=== PATIENT | male | born 1985 | race Caucasian/White ===

== ENCOUNTER 2016-06-04 23:47 | Emergency (ER) | payer MEDICAID ==
[2016-06-05 00:07] VITALS: BP 168/86
[2016-06-05] MEDS ORDERED: Ondansetron 4 MG/2 ML SDV IVPUSH ONE (00:27)
[2016-06-05] MEDS ORDERED: Sodium Chloride 0.9% 1,000 ML IV SCH (00:30)
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
--- NOTE | 2016-06-06 09:01 | CR ---
Chest 2V HISTORY: cough COMPARISON: None FINDINGS: Lungs appear clear and normally aerated. Cardiomediastinal silhouette is within normal limits. No va scular redistribution or pleural fluid can be seen. Bony structures and soft tissues are unremarkabl e. IMPRESSION: No acute chest abnormality identified.
== END 2016-06-05 02:37 | disposition home or self-care (01) ==
LOC: JP.ED 23:47
DX: Z77.098 Contact with and (suspected) exposure to other hazardous, chiefly nonmedicinal, chemicals (principal); F31.9 Bipolar disorder, unspecified; F17.210 Nicotine dependence, cigarettes, uncomplicated; Z88.1 Allergy status to other antibiotic agents; Z79.899 Other long term (current) drug therapy; Z96.22 Myringotomy tube(s) status; Z98.890 Other specified postprocedural states
CPT/HCPCS: 36415; 71020; 80053; 80305; 81001; 84443; 84484; 85025; 93005; 96361; 96374; 99284; J2405; J7040

== ENCOUNTER 2016-10-14 17:24 | Inpatient (IN) | payer MEDICAID ==
[2016-10-14] MEDS ORDERED: Sodium Chloride 0.9% 1,000 ML IV ONE ×2 (17:45→19:53)
[2016-10-14] MEDS: Sodium Chloride 0.9% 10 ML Syringe FLUSH PRN ×3 (17:56→21:06)
--- NOTE | 2016-10-14 17:57 | EDM.PDOC ---
ED HPI GENERAL MEDICAL PROBLEM - General Chief Complaint: Respiratory Problem Stated Complaint: [facility] Time Seen by Provider: 10/14/16 17:45 Source of Information: Reports: Patient History Limitations: Reports: No Limitations - History of Present Illness INITIAL COMMENTS - FREE TEXT/NARRATIVE: Jose is a 31 year old male who presents to the ED today via EMS with c/o increasing sob x3 days. patient denies any fever or chills, he does report that he has felt diaphoretic at times. Patient does smoke 1 pack per day, he denies any recent drug use except for Suboxone. Patient does endorse a productive cough but he reports this is not new. Patient denies any vomiting or diarrhea. Patient denies any chest pain or history of blood clots. Onset: Gradual Duration: Day(s): (3) - Related Data Allergies Allergy/AdvReac Type Severity Reaction Status Date / Time amoxicillin Allergy Hives Verified 10/14/16 17:34 Home Meds: Home Meds Divalproex Sodium [Depakote] 1,500 mg PO DAILY 06/05/16 [History] Gabapentin [Neurontin] 600 mg PO TID 06/05/16 [History] Naproxen 500 mg PO ASDIRECTED 06/05/16 [History] QUEtiapine [SEROquel] 200 mg PO BEDTIME 06/05/16 [History] QUEtiapine [SEROquel] 300 mg PO BEDTIME 06/05/16 [History] buPROPion [Wellbutrin XL] 150 mg PO DAILY 06/05/16 [History] Buprenorphine HCl/Naloxone HCl [Suboxone 12 mg-3 mg Sl Film] 1 dose PO BID 10/14 [History] Past Medical History Cardiovascular History: Reports: Hypertension Gastrointestinal History: Reports: Hepatitis Genitourinary History: Reports: Other (See Below) Other Genitourinary History: States he had acute kidney faliure Musculoskeletal History: Reports: Fracture Other Musculoskeletal History: Jaw Neurological History: Reports: Seizure Other Neuro History: TBI Psychiatric History: Reports: ADHD, Addiction, Bipolar, Psych Hospitalization(s) , PTSD, Suicide Attempt Endocrine/Metabolic History: Reports: Other (See Below) Other Endocrine/Metabolic History: pre diabetes - Infectious Disease History Infectious Disease History: Reports: Hepatitis C - Past Surgical History HEENT Surgical History: Reports: Adenoidectomy, Myringotomy w Tube(s) Musculoskeletal Surgical History: Reports: Other (See Below) Other Musculoskeletal Surgeries/Procedures:: surgery for broken jaw Social & Family History - Tobacco Use Smoking Status *Q: Heavy Tobacco Smoker Years of Tobacco use: 20 Packs/Tins Daily: 1 - Caffeine Use Caffeine Use: Reports: Coffee, Energy Drinks, Soda - Recreational Drug Use Recreational Drug Use: Yes Recreational Drug Type: Reports: Heroin, Methamphetamine ED ROS GENERAL - Review of Systems Review Of Systems: ROS reveals no pertinent complaints other than HPI. ED EXAM, GENERAL - Physical Exam Exam: See Below Exam Limited By: No Limitations General Appearance: Alert, WD/WN, Anxious, Mild Distress Throat/Mouth: Normal Inspection, Normal Oropharynx Head: Atraumatic Neck: Normal Inspection, Supple, Non-Tender Respiratory/Chest: Lungs Clear, Normal Breath Sounds, Other (mildly tachypneic) . No: Accessory Muscle Use Cardiovascular: Normal Peripheral Pulses, No Murmur, Tachycardia GI/Abdominal: Normal Bowel Sounds, Soft, Non-Tender Extremities: Normal Inspection Neurological: Alert, Oriented, CN II-XII Intact Psychiatric: Anxious Skin Exam: Diaphoretic, Pallor Lymphatic: No Adenopathy Course - Vital Signs Last Recorded V/S: Last Vital Signs Temp 37 C 10/14/16 17:29 Pulse 101 H 10/14/16 20:03 Resp 26 H 10/14/16 17:29 BP 147/85 H 10/14/16 20:03 Pulse Ox 96 10/14/16 20:03 Jose is a 31-year-old otherwise healthy male who presents to the emergency department today with a 3 day history of worsening shortness of breath. Patient denies any fever, he does endorse a productive cough which is not new for him as he is a one pack per day smoker. Patient on arrival here is tachypnea, he is in mild distress secondary to hypoxia, saturation on room air is 85%. Patient responds nicely to 2 L of oxygen per cannula with sats in 94-95%.patient is mildly hypertensive and tachycardic on arrival, given his hypoxia and vital signs, or pulmonary embolism is certainly on the differential, pneumonia is also on the differential although less likely given his lack of fever. Peripheral IV was established and patient was given a liter of fluid here with IV Ativan for anxiety. Chest x-ray was obtained which was negative for any lobar pneumonia. CBC was obtained, white count is normal at 7.9, hemoglobin stable at 14.4, platelet count is 417. CMP returns with a glucose of 111 is otherwise within normal limits. Patient's C-reactive protein is elevated at 2.53 , d-dimer returned at 3080. CT PE was obtained and confirms multiple bilateral pulmonary artery filling defects involving segmental branches in the right upper , right middle, right lower, and left lower lobes. Main pulmonary artery is borderline dilated with evidence of RV strain. Patient was notified of CT results, given his hypoxia I am going to admit him to the hospital and start him on heparin with bridged to Coumadin. I spoke with Dr. Tomas who has accepted patient for admission and will be in to write admission orders. Patient and his girlfriend are agreeable to plan of care and patient will be admitted in stable condition. - Orders/Labs/Meds Orders: Active Orders 24 hr Category Date Time Status Peripheral IV Care [RC] . DIRECTED Care 10/14/16 17:44 Active Ang Chest [CT] Stat Exams 10/14/16 18:47 Taken Chest 2V [CR] Stat Exams 10/14/16 17:45 Taken Heparin Sodium/D5W [Heparin 25,000 Units in D5W 500 ML] Med 10/14/16 20:45 Active 25,000 units in 500 ml IV TITRATE Iopamidol [Isovue-370 (76%)] Med 10/14/16 19:45 Active 100 ml IV . DIRECTED Sodium Chloride 0.9% [Normal Saline] 1,000 ml Med 10/14/16 19:53 Active IV .BOLUS Sodium Chloride 0.9% [Saline Flush] Med 10/14/16 17:44 Active 10 ml FLUSH ASDIRECTED PRN Peripheral IV Insertion Adult [OM.PC] Routine Oth 10/14/16 17:44 Ordered Medication Orders Sodium Chloride (Normal Saline) 1,000 mls @ 999 mls/hr IV .BOLUS ONE Stop: 10/14/16 20:53 Last Admin: 10/14/16 20:00 Dose: 999 mls/hr Heparin Sodium/Dextrose (Heparin 25,000 Units In D5w 500 Ml) 25,000 units in 500 mls @ 26 mls/hr IV TITRATE ALDO; 1,300 UNITS/HR PRN Reason: Protocol Iopamidol (Isovue-370 (76%)) 100 ml IV . DIRECTED ALDO Last Admin: 10/14/16 19:51 Dose: 100 ml Sodium Chloride (Saline Flush) 10 ml FLUSH ASDIRECTED PRN PRN Reason: Keep Vein Open Last Admin: 10/14/16 19:51 Dose: 10 ml Admin: 10/14/16 17:56 Dose: 10 ml Labs: Laboratory Tests 10/14/16 10/14/16 10/14/16 Range/Units 17:44 17:45 17:45 WBC 7.9 (4.5-11.0) K/uL RBC 4.62 (4.30-5.90) M/uL Hgb 14.4 (12.0-15.0) g/dL Hct 41.3 (40.0-54.0) % MCV 89 (80-98) fL MCH 31 (27-31) pg MCHC 35 (32-36) % Plt Count 417 H (150-400) K/uL Neut % (Auto) 63 (36-66) % Lymph % (Auto) 22 L (24-44) % Mccormick % (Auto) 12 H (2-6) % Eos % (Auto) 2 (2-4) % Baso % (Auto) 1 (0-1) % D-Dimer, Quantitative (0.0-400.0) ng/mL Sodium 141 (140-148) mmol/L Potassium 4.4 (3.6-5.2) mmol/L Chloride 106 (100-108) mmol/L Carbon Dioxide 26 (21-32) mmol/L Anion Gap 9.2 (5.0-14.0) mmol/L BUN 14 D (7-18) mg/dL Creatinine 1.0 (0.8-1.3) mg/dL Est Cr Clr Drug Dosing 118.74 mL/min Estimated GFR (MDRD) > 60 (>60) Glucose 111 H (74-106) mg/dL Lactic Acid 1.5 (0.4-2.0) mmol/L Calcium 9.2 (8.5-10.1) mg/dL Total Bilirubin 0.2 (0.2-1.0) mg/dL AST 16 (15-37) U/L ALT 23 (12-78) U/L Alkaline Phosphatase 95 (46-116) U/L C-Reactive Protein (0.0-0.3) mg/dL Total Protein 8.1 (6.4-8.2) g/dL Albumin 3.6 (3.4-5.0) g/dL Globulin 4.5 H (2.3-3.5) g/dL Albumin/Globulin Ratio 0.8 L (1.2-2.2) Urine Color Urine Appearance Urine pH (4.5-8.0) Ur Specific [place] (1.008-1.030) Urine Protein (NEGATIVE) mg/dL Urine Glucose (UA) (NEGATIVE) mg/dL Urine Ketones (NEGATIVE) mg/dL Urine Occult Blood (NEGATIVE) Urine Nitrite (NEGAITVE) Urine Bilirubin (NEGATIVE) Urine Urobilinogen (NORMAL) mg/dL Ur Leukocyte Esterase (NEGATIVE) Urine RBC (0-5) Urine WBC (0-5) Ur Epithelial Cells Amorphous Sediment Urine Bacteria Urine Mucus Urine Opiates Screen (NEGATIVE) Ur Oxycodone Screen (NEGATIVE) Urine Methadone Screen (NEGATIVE) Ur Propoxyphene Screen (NEGATIVE) Ur Barbiturates Screen (NEGATIVE) Ur Tricyclics Screen (NEGATIVE) Ur Phencyclidine Scrn (NEGATIVE) Ur Amphetamine Screen (NEGATIVE) U Methamphetamines Scrn (NEGATIVE) Urine MDMA Screen (NEGATIVE) U Benzodiazepines Scrn (NEGATIVE) U Cocaine Metab Screen (NEGATIVE) U Marijuana (THC) Screen (NEGATIVE) 10/14/16 10/14/16 10/14/16 Range/Units 17:46 17:56 18:59 WBC (4.5-11.0) K/uL RBC (4.30-5.90) M/uL Hgb (12.0-15.0) g/dL Hct (40.0-54.0) % MCV (80-98) fL MCH (27-31) pg MCHC (32-36) % Plt Count (150-400) K/uL Neut % (Auto) (36-66) % Lymph % (Auto) (24-44) % Mccormick % (Auto) (2-6) % Eos % (Auto) (2-4) % Baso % (Auto) (0-1) % D-Dimer, Quantitative 3080 H (0.0-400.0) ng/mL Sodium (140-148) mmol/L Potassium (3.6-5.2) mmol/L Chloride (100-108) mmol/L Carbon Dioxide (21-32) mmol/L Anion Gap (5.0-14.0) mmol/L BUN (7-18) mg/dL Creatinine (0.8-1.3) mg/dL Est Cr Clr Drug Dosing mL/min Estimated GFR (MDRD) (>60) Glucose (74-106) mg/dL Lactic Acid (0.4-2.0) mmol/L Calcium (8.5-10.1) mg/dL Total Bilirubin (0.2-1.0) mg/dL AST (15-37) U/L ALT (12-78) U/L Alkaline Phosphatase (46-116) U/L C-Reactive Protein 2.53 H (0.0-0.3) mg/dL Total Protein (6.4-8.2) g/dL Albumin (3.4-5.0) g/dL Globulin (2.3-3.5) g/dL Albumin/Globulin Ratio (1.2-2.2) Urine Color Urine Appearance Urine pH (4.5-8.0) Ur Specific [place] (1.008-1.030) Urine Protein (NEGATIVE) mg/dL Urine Glucose (UA) (NEGATIVE) mg/dL Urine Ketones (NEGATIVE) mg/dL Urine Occult Blood (NEGATIVE) Urine Nitrite (NEGAITVE) Urine Bilirubin (NEGATIVE) Urine Urobilinogen (NORMAL) mg/dL Ur Leukocyte Esterase (NEGATIVE) Urine RBC (0-5) Urine WBC (0-5) Ur Epithelial Cells Amorphous Sediment Urine Bacteria Urine Mucus Urine Opiates Screen Negative (NEGATIVE) Ur Oxycodone Screen Negative (NEGATIVE) Urine Methadone Screen Negative (NEGATIVE) Ur Propoxyphene Screen Negative (NEGATIVE) Ur Barbiturates Screen Negative (NEGATIVE) Ur Tricyclics Screen Negative (NEGATIVE) Ur Phencyclidine Scrn Negative (NEGATIVE) Ur Amphetamine Screen Negative (NEGATIVE) U Methamphetamines Scrn Negative (NEGATIVE) Urine MDMA Screen Negative (NEGATIVE) U Benzodiazepines Scrn Negative (NEGATIVE) U Cocaine Metab Screen Negative (NEGATIVE) U Marijuana (THC) Screen Negative (NEGATIVE) 10/14/16 Range/Units 18:59 WBC (4.5-11.0) K/uL RBC (4.30-5.90) M/uL Hgb (12.0-15.0) g/dL Hct (40.0-54.0) % MCV (80-98) fL MCH (27-31) pg MCHC (32-36) % Plt Count (150-400) K/uL Neut % (Auto) (36-66) % Lymph % (Auto) (24-44) % Mccormick % (Auto) (2-6) % Eos % (Auto) (2-4) % Baso % (Auto) (0-1) % D-Dimer, Quantitative (0.0-400.0) ng/mL Sodium (140-148) mmol/L Potassium (3.6-5.2) mmol/L Chloride (100-108) mmol/L Carbon Dioxide (21-32) mmol/L Anion Gap (5.0-14.0) mmol/L BUN (7-18) mg/dL Creatinine (0.8-1.3) mg/dL Est Cr Clr Drug Dosing mL/min Estimated GFR (MDRD) (>60) Glucose (74-106) mg/dL Lactic Acid (0.4-2.0) mmol/L Calcium (8.5-10.1) mg/dL Total Bilirubin (0.2-1.0) mg/dL AST (15-37) U/L ALT (12-78) U/L Alkaline Phosphatase (46-116) U/L C-Reactive Protein (0.0-0.3) mg/dL Total Protein (6.4-8.2) g/dL Albumin (3.4-5.0) g/dL Globulin (2.3-3.5) g/dL Albumin/Globulin Ratio (1.2-2.2) Urine Color Yellow Urine Appearance Clear Urine pH 7.0 (4.5-8.0) Ur Specific [place] 1.010 (1.008-1.030) Urine Protein Negative (NEGATIVE) mg/dL Urine Glucose (UA) Normal (NEGATIVE) mg/dL Urine Ketones Negative (NEGATIVE) mg/dL Urine Occult Blood Negative (NEGATIVE) Urine Nitrite Negative (NEGAITVE) Urine Bilirubin Negative (NEGATIVE) Urine Urobilinogen Normal (NORMAL) mg/dL Ur Leukocyte Esterase Negative (NEGATIVE) Urine RBC 0-5 (0-5) Urine WBC 0-5 (0-5) Ur Epithelial Cells Rare Amorphous Sediment Few Urine Bacteria Not seen Urine Mucus Few Urine Opiates Screen (NEGATIVE) Ur Oxycodone Screen (NEGATIVE) Urine Methadone Screen (NEGATIVE) Ur Propoxyphene Screen (NEGATIVE) Ur Barbiturates Screen (NEGATIVE) Ur Tricyclics Screen (NEGATIVE) Ur Phencyclidine Scrn (NEGATIVE) Ur Amphetamine Screen (NEGATIVE) U Methamphetamines Scrn (NEGATIVE) Urine MDMA Screen (NEGATIVE) U Benzodiazepines Scrn (NEGATIVE) U Cocaine Metab Screen (NEGATIVE) U Marijuana (THC) Screen (NEGATIVE) Meds: Medications Generic Name Dose Route Start Last Admin Trade Name Freq PRN Reason Stop Dose Admin Sodium Chloride 1,000 mls @ 999 mls/hr 10/14/16 19:53 10/14/16 20:00 Normal Saline IV 10/14/16 20:53 999 mls/hr .BOLUS ONE Administration Heparin Sodium/Dextrose 25,000 units in 500 mls @ 26 mls/hr 10/14/16 20:45 Heparin 25,000 Units In D5w 500 Ml IV TITRATE ALDO Protocol 1,300 UNITS/HR Iopamidol 100 ml 10/14/16 19:45 10/14/16 19:51 Isovue-370 (76%) IV 100 ml . DIRECTED ALDO Administration Sodium Chloride 10 ml 10/14/16 17:44 10/14/16 19:51 Saline Flush FLUSH 10 ml ASDIRECTED PRN Administration Keep Vein Open Discontinued Medications Generic Name Dose Route Start Last Admin Trade Name Suzi PRN Reason Stop Dose Admin Heparin Sodium (Porcine) 5,000 units 10/14/16 20:46 Heparin Sodium IVPUSH 10/14/16 20:47 ONETIME ONE Sodium Chloride 1,000 mls @ 999 mls/hr 10/14/16 17:45 10/14/16 17:55 Normal Saline IV 10/14/16 18:45 999 mls/hr .BOLUS ONE Administration Sodium Chloride 100 mls @ 3 mls/sec 10/14/16 19:32 10/14/16 19:51 Normal Saline IV 10/14/16 19:33 3 mls/sec ONETIME ONE Administration Lorazepam 1 mg 10/14/16 18:06 10/14/16 18:41 Ativan IVPUSH 10/14/16 18:07 1 mg ONETIME ONE Administration Sodium Chloride 10 ml 10/14/16 19:32 Normal Saline FLUSH 10/14/16 19:33 ONETIME ONE Departure - Departure Time of Disposition: 21:30 Disposition: Admitted As Inpatient 64 Condition: Good Clinical Impression: Pulmonary emboli Qualifiers: Pulmonary embolism type: other Chronicity: acute Acute cor pulmonale presence: without acute cor pulmonale Qualified Code(s): I26.99 - Other pulmonary embolism without acute cor pulmonale - Discharge Information Forms: ED Department Discharge - My Orders Last 24 Hours: My Active Orders 10/14/16 17:44 Peripheral IV Care [RC] . DIRECTED Sodium Chloride 0.9% [Saline Flush] 10 ml FLUSH ASDIRECTED PRN Peripheral IV Insertion Adult [OM.PC] Routine 10/14/16 17:45 Chest 2V [CR] Stat 10/14/16 18:47 Ang Chest [CT] Stat 10/14/16 19:45 Iopamidol [Isovue-370 (76%)] 100 ml IV . DIRECTED 10/14/16 19:53 Sodium Chloride 0.9% [Normal Saline] 1,000 ml IV .BOLUS 10/14/16 20:45 Heparin Sodium/D5W [Heparin 25,000 Units in D5W 500 ML] 25,000 units in 500 ml IV TITRATE - Assessment/Plan Last 24 Hours: My Active Orders 10/14/16 17:44 Peripheral IV Care [RC] . DIRECTED Sodium Chloride 0.9% [Saline Flush] 10 ml FLUSH ASDIRECTED PRN Peripheral IV Insertion Adult [OM.PC] Routine 10/14/16 17:45 Chest 2V [CR] Stat 10/14/16 18:47 Ang Chest [CT] Stat 10/14/16 19:45 Iopamidol [Isovue-370 (76%)] 100 ml IV . DIRECTED 10/14/16 19:53 Sodium Chloride 0.9% [Normal Saline] 1,000 ml IV .BOLUS 10/14/16 20:45 Heparin Sodium/D5W [Heparin 25,000 Units in D5W 500 ML] 25,000 units in 500 ml IV TITRATE
[2016-10-14] MEDS ORDERED: LORazepam 2 MG/ML MDV IVPUSH ONE ×2 (18:06→21:12)
[2016-10-14] MEDS ORDERED: Sodium Chloride 0.9% 100 ML IV ONE (19:32)
[2016-10-14] MEDS ORDERED: Sodium Chloride 0.9% 10 ML SDV FLUSH ONE (19:32)
[2016-10-14] MEDS ORDERED: Iopamidol 755 Mg/ML 100 ML Bottle IV SCH (19:45)
[2016-10-14] MEDS ORDERED: Heparin Sodium/D5W 25,000 UNITS/500 ML BAG IV SCH (20:45)
[2016-10-14] MEDS ORDERED: Heparin Sodium 5,000 Units/ML Vial IVPUSH ONE (20:46)
[2016-10-14] MEDS: Sodium Chloride 0.9% 1,000 ML IV SCH (21:03)
[2016-10-14] MEDS ORDERED: Sodium Chloride 0.9% 1,000 ML IV SCH (21:30)
[2016-10-14] MEDS ORDERED: Warfarin 5 MG Tab PO ONE (21:40)
[2016-10-14] MEDS ORDERED: LORazepam 2 MG/ML MDV IVPUSH PRN ×2 (22:34→23:04)
[2016-10-14] MEDS ORDERED: QUEtiapine 100 MG Tab PO SCH ×2 (23:00→23:45)
[2016-10-14] MEDS: Nicotine 21 MG/24 Hr Patch TRDERM SCH (23:08)
[2016-10-14] MEDS: Mirtazapine 15 MG Tab PO SCH (23:16)
--- NOTE | 2016-10-15 00:57 | HP ---
CHIEF COMPLAINT: Shortness of breath. HISTORY OF PRESENT ILLNESS: A 31-year-old, who has had history of chronic back pain with psychological problems, previous chemical dependency with meth, but it has been a few months since he has used. For the last four to five days, he has had increasing shortness of breath, no chest pain. Has not had any pain or swelling in his legs. Apparently, about a week ago, he was tackled by police, was brought into the emergency room because of his shortness of breath, which had increased and was noted to have bilateral pulmonary embolism. He has never had a history of this in the past. I was asked to see the patient for further evaluation and treatment. Patient otherwise denies any other specific complaints. PAST MEDICAL HISTORY: Chronic back pain, chronic opioid therapy with doctor in [place]. He had a fractured jaw with titanium plate placed on the right side in the past, otherwise no other significant surgical medical problems. MEDICATIONS: Suboxone 12 mg/3 b.i.d., Depakote 1500 mg daily, gabapentin 600 mg t.i.d., naproxen 500 mg I am not sure how often he gets this, and Seroquel 200 mg and 300 mg at bedtime. Apparently, bupropion 150 mg daily. ALLERGIES: AMOXICILLIN. SOCIAL HISTORY: Smokes but I would like to try to quit, occasional alcohol use, had used meth last about three months ago. FAMILY HISTORY: I think maybe his mother had some type of blood clot, but he does not know for sure. Otherwise, no other clotting problems that run in his family that he knows of. REVIEW OF SYSTEMS: Denies headaches, vision changes, upper respiratory symptoms. No chest pain. Does have shortness of breath. No nausea, vomiting, diarrhea, constipation. No bloody or black stools. No urinary problems. No swelling in his legs. No skin problems reported. No neurologic complaints reported. OBJECTIVE: VITAL SIGNS: Pulse 111, blood pressure 135/95, O2 saturation apparently en route he was in the mid 80% range on room air, now is on 2 L and is 96%. GENERAL: The patient is alert and oriented x3, in no apparent distress. HEENT: Pharynx is clear. NECK: Supple. No obvious thyromegaly. Does have chronic pain of his neck and back. No deformity. LUNGS: Clear. HEART: Regular without murmurs. ABDOMEN: Soft, nontender, no mass or organomegaly palpated. SKIN: Has number of tattoos. EXTREMITIES: I do not see any pain or swelling of his arms or legs. Kenton's sign is negative. Calves not painful. No swelling. LABORATORY DATA: CT scan showed multiple bilateral pulmonary emboli. D-dimer was 3080. White count 7.9, hemoglobin 14.4, platelets 417,000. Sodium 141, potassium 4.1, chloride 106. Liver functions were normal. C-reactive protein was elevated at 2.53. Urinalysis was unremarkable. Tox screen was negative. ASSESSMENT: Shortness of breath, bilateral pulmonary emboli, stable on 2 L of O2 per nasal cannula. He has been already started on IV heparin, which will continue and start him on warfarin. We will turn over his care to the hospitalist in the morning. Other medical problems as listed above. Tony Tomas MD /[id number]
[2016-10-15] MEDS ORDERED: Heparin Sodium 5,000 Units/ML Vial IVPUSH ONE (03:23)
[2016-10-15] MEDS: Sodium Chloride 0.9% 1,000 ML IV SCH (04:42)
[2016-10-15] MEDS ORDERED: Naproxen 250 MG Tab PO PRN (07:30)
[2016-10-15] MEDS: Gabapentin 300 MG Cap PO SCH ×3 (08:39→21:19)
[2016-10-15] MEDS: Nicotine 21 MG/24 Hr Patch TRDERM SCH (08:39)
[2016-10-15] MEDS: Enoxaparin 120 MG/0.8 ML Syringe SUBCUT SCH ×2 (08:42→21:19)
[2016-10-15] MEDS ORDERED: buPROPion 150 MG Tab.ER PO SCH (09:00)
[2016-10-15] MEDS ORDERED: Warfarin 5 MG Tab PO ONE (09:00)
[2016-10-15] MEDS ORDERED: Divalproex Sodium Delayed-Release 250 MG Tab.CR PO SCH (09:00)
[2016-10-15] MEDS ORDERED: Divalproex Sodium 250 MG Tab.ER PO SCH (09:00)
--- NOTE | 2016-10-15 09:27 | PCM.PN ---
- General Info Date of Service: 10/15/16 Functional Status: Reports: Pain Controlled, Tolerating Diet, Urinating - Review of Systems General: Reports: No Symptoms Pulmonary: Reports: Shortness of Breath. Denies: Pleuritic Chest Pain, Cough, Sputum, Hemoptysis, Wheezing Cardiovascular: Reports: Dyspnea on Exertion. Denies: Chest Pain, Palpitations , Orthopnea, PND, Edema Gastrointestinal: Reports: No Symptoms Systems Review Comment:: This patient is a 31-year-old gentleman was admitted during the night with hypoxia secondary to bilateral pulmonary emboli. He has no previous history of blood clots, one week ago was tackled by police and did have some bruising and sore areas on his legs. He was admitted through the emergency department and started on IV heparin as well as his first dose of warfarin. Remains on supplemental oxygen but reports that his shortness of breath has been better. Vital signs have been stable and he has remained afebrile. - Patient Data Vitals - Most Recent: Last Vital Signs Temp 96.7 F 10/15/16 08:00 Pulse 60 10/15/16 08:00 Resp 20 10/15/16 08:00 BP 128/74 10/15/16 08:00 Pulse Ox 93 L 10/15/16 08:00 Weight - Most Recent: 255 lb I&O - Last 24 Hours: Intake & Output 10/14/16 10/15/16 10/15/16 22:59 06:59 14:59 Intake Total 1821 Output Total 700 Balance 1121 Lab Results Last 24 Hours: Laboratory Results - last 24 hr 10/14/16 10/14/16 10/15/16 Range/Units 21:40 22:02 02:50 PT 10.5 (9.5-12.0) sec INR 0.98 (0.80-1.20) APTT 26.9 L 32.7 (27.0-36.0) sec Med Orders - Current: Current Medications Bupropion HCl (Wellbutrin Xl) 150 mg PO BEDTIME ALDO Divalproex Sodium (Depakote Er) 1,500 mg PO BEDTIME [facility] Enoxaparin Sodium (Lovenox) 120 mg SUBCUT Q12H [facility] Last Admin: 10/15/16 08:42 Dose: 120 mg Gabapentin (Neurontin) 600 mg PO TID [facility] Last Admin: 10/15/16 08:39 Dose: 600 mg Lorazepam (Ativan) 0.5 mg IVPUSH Q4H PRN PRN Reason: Anxiety Mirtazapine (Remeron) 15 mg PO BEDTIME [facility] Last Admin: 10/14/16 23:16 Dose: 15 mg Naproxen (Naprosyn) 500 mg PO BID PRN PRN Reason: PAIN Nicotine (Habitrol) 21 mg TRDERM DAILY [facility]DO Last Admin: 10/15/16 08:39 Dose: 21 mg Non-Formulary Medication (Buprenorphine Hcl/Naloxone Hcl [Suboxone 12 Mg-3 Mg Sl Film]) 1 dose PO BID ALDO Pneumococcal Polyvalent Vaccine (Pneumovax 23) 0.5 ml SUBCUT .ONCE ONE Stop: 10/16/16 10:01 Quetiapine Fumarate 300 mg/ (Quetiapine Fumarate 200 mg) 500 mg PO BEDTIME ALDO Sodium Chloride (Saline Flush) 10 ml FLUSH ASDIRECTED PRN PRN Reason: Keep Vein Open Last Admin: 10/14/16 21:06 Dose: 10 ml Discontinued Medications Heparin Sodium (Porcine) (Heparin Sodium) 5,000 units IVPUSH ONETIME ONE Stop: 10/14/16 20:47 Last Admin: 10/14/16 21:03 Dose: 5,000 units Heparin Sodium (Porcine) (Heparin Sodium) 2,500 units IVPUSH ONETIME ONE Stop: 10/15/16 03:24 Last Admin: 10/15/16 03:38 Dose: 2,500 units Sodium Chloride (Normal Saline) 1,000 mls @ 999 mls/hr IV .BOLUS ONE Stop: 10/14/16 18:45 Last Admin: 10/14/16 17:55 Dose: 999 mls/hr Sodium Chloride (Normal Saline) 100 mls @ 3 mls/sec IV ONETIME ONE Stop: 10/14/16 19:33 Last Admin: 10/14/16 19:51 Dose: 3 mls/sec Sodium Chloride (Normal Saline) 1,000 mls @ 999 mls/hr IV .BOLUS ONE Stop: 10/14/16 20:53 Last Admin: 10/14/16 20:00 Dose: 999 mls/hr Heparin Sodium/Dextrose (Heparin 25,000 Units In D5w 500 Ml) 25,000 units in 500 mls @ 26 mls/hr IV TITRATE ALDO; 1,300 UNITS/HR PRN Reason: Protocol Last Titration: 10/15/16 03:27 Dose: 1,760 units/hr, 35.2 mls/hr Sodium Chloride (Normal Saline) 1,000 mls @ 125 mls/hr IV ASDIRECTED ALDO Last Admin: 10/15/16 04:42 Dose: 125 mls/hr Sodium Chloride (Normal Saline) 1,000 mls @ 125 mls/hr IV ASDIRECTED ALDO Iopamidol (Isovue-370 (76%)) 100 ml IV . DIRECTED ALDO Last Admin: 10/14/16 19:51 Dose: 100 ml Lorazepam (Ativan) 1 mg IVPUSH ONETIME ONE Stop: 10/14/16 18:07 Last Admin: 10/14/16 18:41 Dose: 1 mg Lorazepam (Ativan) 1 mg IVPUSH ONETIME ONE Stop: 10/14/16 21:13 Last Admin: 10/14/16 21:24 Dose: 1 mg Lorazepam (Ativan) 1 mg IVPUSH Q4H PRN PRN Reason: Anxiety Last Admin: 10/14/16 23:09 Dose: 1 mg Lorazepam (Ativan) 1 mg IVPUSH Q2H PRN PRN Reason: Anxiety Quetiapine Fumarate (Seroquel) 200 mg PO BEDTIME [facility]DO Quetiapine Fumarate (Seroquel) 300 mg PO BEDTIME ALDO Quetiapine Fumarate (Seroquel) 200 mg PO BEDTIME [facility]DO Last Admin: 10/14/16 23:50 Dose: 200 mg Quetiapine Fumarate (Seroquel) 300 mg PO BEDTIME [facility] Quetiapine Fumarate (Seroquel) 300 mg PO BEDTIME ALDO Last Admin: 10/14/16 23:51 Dose: 300 mg Sodium Chloride (Normal Saline) 10 ml FLUSH ONETIME ONE Stop: 10/14/16 19:33 Last Admin: 10/14/16 23:10 Dose: Not Given Warfarin Sodium (Coumadin) 5 mg PO ONETIME ONE Stop: 10/14/16 21:41 Last Admin: 10/14/16 22:55 Dose: 5 mg Warfarin Sodium (Coumadin) 5 mg PO ONETIME ONE Stop: 10/15/16 09:01 Last Admin: 10/15/16 08:42 Dose: 5 mg - Exam Quality Assessment: Supplemental Oxygen, DVT Prophylaxis General: Alert, Oriented, Cooperative, Mild Distress Lungs: Clear to Auscultation, Normal Respiratory Effort Cardiovascular: Regular Rate, Regular Rhythm, No Murmurs GI/Abdominal Exam: Normal Bowel Sounds, Soft, Non-Tender, No Distention Extremities: Normal Inspection, No Pedal Edema Skin: Warm, Dry, Intact - Problem List Review Problem List Initiated/Reviewed/Updated: Yes - My Orders Last 24 Hours: My Active Orders 10/15/16 09:00 Enoxaparin [Lovenox] 120 mg SUBCUT Q12H 10/15/16 09:18 Cardiac Monitoring [RC] .As Directed 10/15/16 09:22 LORazepam [Ativan] 0.5 mg IVPUSH Q4H PRN Convert IV to Saline Lock [OM.PC] Routine 10/16/16 05:11 INR,PT,PROTHROMBIN TIME [COAG] AM - Plan Plan:: ASSESSMENT AND PLAN BILATERAL PULMONARY EMBOLI-he denies any previous history of blood clots. Possible traumatic event occurring one week ago may have contributed to development of deep vein thrombosis. There is a family history of blood clots but is not sure of the specifics. Reports that his shortness of breath has improved since admission. -Saline lock IV -Discontinue IV heparin -Lovenox 120 mg subcutaneous every 12 hours -Warfarin 5 mg by mouth today -INR in a.m. -Evaluation for hypercoagulable state after he is off of warfarin MAINTENANCE ISSUES -DVT prophylaxis; current therapy with Lovenox should provide adequate DVT prophylaxis -GI prophylaxis; not indicated -Cabral catheter; not indicated -Nutrition; regular diet -Nicotine dependence; 21 mg nicotinic patch CODE STATUS-FULL CODE ADMISSION STATUS-patient will be admitted to inpatient status, expect at least a 2 night hospital stay for evaluation and management of problems as outlined above. At the time of this admission I do not reasonably expected evaluation and management of this problem will require more than a 96 hour hospital stay. DISPOSITION-anticipate discharge to home after the hospital stay. PRIMARY CARE PROVIDER-Gene Art
[2016-10-15] MEDS: LORazepam 2 MG/ML MDV IVPUSH PRN ×2 (17:16→23:03)
[2016-10-15] MEDS: Nicotine Polacrilex 2 MG Gum CHEW PRN (18:18)
[2016-10-15] MEDS ORDERED: QUEtiapine 100 MG Tab PO SCH ×2 (21:00)
[2016-10-15] MEDS: Divalproex Sodium 250 MG Tab.ER PO SCH (21:19)
[2016-10-15] MEDS: Mirtazapine 15 MG Tab PO SCH (21:20)
[2016-10-15] MEDS: QUETIAPINE PO SCH ×2 (21:21)
[2016-10-15] MEDS: buPROPion 150 MG Tab.ER PO SCH (21:21)
[2016-10-16] MEDS: Nicotine 21 MG/24 Hr Patch TRDERM SCH (08:01)
[2016-10-16] MEDS: Enoxaparin 120 MG/0.8 ML Syringe SUBCUT SCH ×2 (08:02→20:02)
[2016-10-16] MEDS: Nicotine Polacrilex 2 MG Gum CHEW PRN (08:07)
[2016-10-16] MEDS ORDERED: Warfarin 2.5 MG Tab PO ONE (09:00)
--- NOTE | 2016-10-16 09:14 | PCM.PN ---
- General Info Date of Service: 10/16/16 - Review of Systems General: Denies: Fever, Chills Pulmonary: Reports: Shortness of Breath. Denies: Pleuritic Chest Pain, Cough, Sputum, Hemoptysis, Wheezing Cardiovascular: Reports: Dyspnea on Exertion. Denies: Chest Pain, Palpitations , Orthopnea, PND, Edema, Lightheadedness Gastrointestinal: Reports: No Symptoms Systems Review Comment:: This patient has continued to experience mild hypoxia and has required ongoing use of supplemental oxygen. Other than borderline saturations he's otherwise been hemodynamically stable as well as afebrile. This morning is very groggy, nursing staff has found to Xanax pills in the room. He denies having taking any medications other than what her currently prescribed. Currently is using nicotinic patch as well as nicotinic gum for management of his nicotinic withdrawal. Continues to ask nursing staff to be able to go outside to smoke. I explained to him with the current pulmonary emboli that he really needs to stop smoking because of respiratory compromise. - Patient Data Vitals - Most Recent: Last Vital Signs Temp 97.9 F 10/16/16 07:32 Pulse 97 10/16/16 07:32 Resp 20 10/16/16 07:32 BP 120/64 10/16/16 07:32 Pulse Ox 90 L 10/16/16 07:32 Weight - Most Recent: 255 lb I&O - Last 24 Hours: Intake & Output 10/15/16 10/16/16 10/16/16 22:59 06:59 14:59 Intake Total 1360 Balance 1360 Lab Results Last 24 Hours: Laboratory Results - last 24 hr 10/16/16 Range/Units 05:37 PT 10.8 (9.5-12.0) sec INR 1.01 (0.80-1.20) Med Orders - Current: Current Medications Bupropion HCl (Wellbutrin Xl) 150 mg PO BEDTIME [facility] Last Admin: 10/15/16 21:21 Dose: 150 mg Divalproex Sodium (Depakote Er) 1,500 mg PO BEDTIME [facility] Last Admin: 10/15/16 21:19 Dose: 1,500 mg Enoxaparin Sodium (Lovenox) 120 mg SUBCUT Q12H [facility] Last Admin: 10/16/16 08:02 Dose: 120 mg Gabapentin (Neurontin) 600 mg PO TID [facility] Last Admin: 10/15/16 21:19 Dose: 600 mg Lorazepam (Ativan) 0.5 mg IVPUSH Q4H PRN PRN Reason: Anxiety Last Admin: 10/15/16 23:03 Dose: 0.5 mg Mirtazapine (Remeron) 15 mg PO BEDTIME [facility] Last Admin: 10/15/16 21:20 Dose: 15 mg Naproxen (Naprosyn) 500 mg PO BID PRN PRN Reason: PAIN Nicotine (Habitrol) 21 mg TRDERM DAILY [facility] Last Admin: 10/16/16 08:01 Dose: 21 mg Nicotine Polacrilex (Nicorelief) 2 mg CHEW Q1H PRN PRN Reason: smoking substitute Last Admin: 10/16/16 08:07 Dose: 2 mg Non-Formulary Medication (Buprenorphine Hcl/Naloxone Hcl [Suboxone 12 Mg-3 Mg Sl Film]) 1 dose PO BID [facility] Pneumococcal Polyvalent Vaccine (Pneumovax 23) 0.5 ml SUBCUT .ONCE ONE Stop: 10/16/16 10:01 Quetiapine Fumarate 300 mg/ (Quetiapine Fumarate 200 mg) 500 mg PO BEDTIME [facility] Last Admin: 10/15/16 21:21 Dose: 500 mg Sodium Chloride (Saline Flush) 10 ml FLUSH ASDIRECTED PRN PRN Reason: Keep Vein Open Last Admin: 10/14/16 21:06 Dose: 10 ml Discontinued Medications Heparin Sodium (Porcine) (Heparin Sodium) 5,000 units IVPUSH ONETIME ONE Stop: 10/14/16 20:47 Last Admin: 10/14/16 21:03 Dose: 5,000 units Heparin Sodium (Porcine) (Heparin Sodium) 2,500 units IVPUSH ONETIME ONE Stop: 10/15/16 03:24 Last Admin: 10/15/16 03:38 Dose: 2,500 units Sodium Chloride (Normal Saline) 1,000 mls @ 999 mls/hr IV .BOLUS ONE Stop: 10/14/16 18:45 Last Admin: 10/14/16 17:55 Dose: 999 mls/hr Sodium Chloride (Normal Saline) 100 mls @ 3 mls/sec IV ONETIME ONE Stop: 10/14/16 19:33 Last Admin: 10/14/16 19:51 Dose: 3 mls/sec Sodium Chloride (Normal Saline) 1,000 mls @ 999 mls/hr IV .BOLUS ONE Stop: 10/14/16 20:53 Last Admin: 10/14/16 20:00 Dose: 999 mls/hr Heparin Sodium/Dextrose (Heparin 25,000 Units In D5w 500 Ml) 25,000 units in 500 mls @ 26 mls/hr IV TITRATE ALDO; 1,300 UNITS/HR PRN Reason: Protocol Last Titration: 10/15/16 03:27 Dose: 1,760 units/hr, 35.2 mls/hr Sodium Chloride (Normal Saline) 1,000 mls @ 125 mls/hr IV ASDIRECTED ALDO Last Admin: 10/15/16 04:42 Dose: 125 mls/hr Sodium Chloride (Normal Saline) 1,000 mls @ 125 mls/hr IV ASDIRECTED ALDO Iopamidol (Isovue-370 (76%)) 100 ml IV . DIRECTED ALDO Last Admin: 10/14/16 19:51 Dose: 100 ml Lorazepam (Ativan) 1 mg IVPUSH ONETIME ONE Stop: 10/14/16 18:07 Last Admin: 10/14/16 18:41 Dose: 1 mg Lorazepam (Ativan) 1 mg IVPUSH ONETIME ONE Stop: 10/14/16 21:13 Last Admin: 10/14/16 21:24 Dose: 1 mg Lorazepam (Ativan) 1 mg IVPUSH Q4H PRN PRN Reason: Anxiety Last Admin: 10/14/16 23:09 Dose: 1 mg Lorazepam (Ativan) 1 mg IVPUSH Q2H PRN PRN Reason: Anxiety Quetiapine Fumarate (Seroquel) 200 mg PO BEDTIME [facility]DO Quetiapine Fumarate (Seroquel) 300 mg PO BEDTIME ALDO Quetiapine Fumarate (Seroquel) 200 mg PO BEDTIME [facility]DO Last Admin: 10/14/16 23:50 Dose: 200 mg Quetiapine Fumarate (Seroquel) 300 mg PO BEDTIME ALDO Quetiapine Fumarate (Seroquel) 300 mg PO BEDTIME [facility]DO Last Admin: 10/14/16 23:51 Dose: 300 mg Sodium Chloride (Normal Saline) 10 ml FLUSH ONETIME ONE Stop: 10/14/16 19:33 Last Admin: 10/14/16 23:10 Dose: Not Given Warfarin Sodium (Coumadin) 5 mg PO ONETIME ONE Stop: 10/14/16 21:41 Last Admin: 10/14/16 22:55 Dose: 5 mg Warfarin Sodium (Coumadin) 5 mg PO ONETIME ONE Stop: 10/15/16 09:01 Last Admin: 10/15/16 08:42 Dose: 5 mg Warfarin Sodium (Coumadin) 7.5 mg PO ONETIME ONE Stop: 10/16/16 09:01 - Exam Quality Assessment: Supplemental Oxygen, DVT Prophylaxis General: Alert, Oriented, Sedated Lungs: Clear to Auscultation, Normal Respiratory Effort Cardiovascular: Regular Rate, Regular Rhythm, No Murmurs GI/Abdominal Exam: Normal Bowel Sounds, Soft, Non-Tender, No Distention Extremities: Normal Inspection, No Pedal Edema Skin: Warm, Dry, Intact - Problem List Review Problem List Initiated/Reviewed/Updated: Yes - My Orders Last 24 Hours: My Active Orders 10/15/16 09:00 Enoxaparin [Lovenox] 120 mg SUBCUT Q12H 10/15/16 09:18 Cardiac Monitoring [RC] .As Directed 10/15/16 09:22 LORazepam [Ativan] 0.5 mg IVPUSH Q4H PRN Convert IV to Saline Lock [OM.PC] Routine 10/15/16 17:29 Nicotine Polacrilex [Nicorelief] 2 mg CHEW Q1H PRN 10/15/16 18:12 Communication Order [RC] ASDIRECTED 10/17/16 05:11 INR,PT,PROTHROMBIN TIME [COAG] AM - Plan Plan:: ASSESSMENT AND PLAN BILATERAL PULMONARY EMBOLI-he denies any previous history of blood clots. Possible traumatic event occurring one week ago may have contributed to development of deep vein thrombosis. There is a family history of blood clots but is not sure of the specifics. Continues to experience hypoxia on room air. INR remains almost normal despite 2 previous 5 mg doses of warfarin -Supplemental oxygen as needed -Continuous pulse oximetry -Saline lock IV -Lovenox 120 mg subcutaneous every 12 hours -Warfarin 7.5 mg by mouth today -INR in a.m. -Evaluation for hypercoagulable state after he is off of warfarin MAINTENANCE ISSUES -DVT prophylaxis; current therapy with Lovenox should provide adequate DVT prophylaxis -GI prophylaxis; not indicated -Cabral catheter; not indicated -Nutrition; regular diet -Nicotine dependence; 21 mg nicotine patch, 2 mg nicotine gum CODE STATUS-FULL CODE ADMISSION STATUS-patient will be admitted to inpatient status, expect at least a 2 night hospital stay for evaluation and management of problems as outlined above. At the time of this admission I do not reasonably expected evaluation and management of this problem will require more than a 96 hour hospital stay. DISPOSITION-anticipate discharge to home after the hospital stay. PRIMARY CARE PROVIDER-Gene Art
[2016-10-16] MEDS ORDERED: Pneumococcal Polyvalent-23 Vaccine 0.5 ML SDV SUBCUT ONE (10:00)
[2016-10-16] MEDS: Gabapentin 300 MG Cap PO SCH ×3 (10:19→20:02)
[2016-10-16] MEDS ORDERED: LORazepam 0.5 MG Tab PO PRN (19:32)
[2016-10-16] MEDS: Divalproex Sodium 250 MG Tab.ER PO SCH (20:02)
[2016-10-16] MEDS: Mirtazapine 15 MG Tab PO SCH (20:02)
[2016-10-16] MEDS: QUETIAPINE PO SCH ×2 (20:03)
[2016-10-16] MEDS: buPROPion 150 MG Tab.ER PO SCH (20:03)
--- NOTE | 2016-10-17 08:15 | CR ---
Chest 2V INDICATION: cough COMPARISON: 06/05/2016 FINDINGS: Two views. Heart size normal. Lungs are clear. No infiltrate or pleural effusion. No si gns of pulmonary edema. IMPRESSION: Negative chest.
[2016-10-17] MEDS: Nicotine 21 MG/24 Hr Patch TRDERM SCH (09:28)
[2016-10-17] MEDS: Gabapentin 300 MG Cap PO SCH ×3 (09:28→20:57)
[2016-10-17] MEDS: Enoxaparin 120 MG/0.8 ML Syringe SUBCUT SCH ×2 (09:28→20:55)
--- NOTE | 2016-10-17 10:13 | PCM.PN ---
- General Info Date of Service: 10/17/16 Functional Status: Reports: Pain Controlled, Tolerating Diet - Review of Systems Pulmonary: Reports: Shortness of Breath Cardiovascular: Denies: Chest Pain Systems Review Comment:: no acute events overnight. He has been noted to have intermittent episodes of somnolence. Patient denies using any sort of extra medication on top of what is prescribed. He is short of breath with activity and requires supplemental oxygen intermittently and especially with activity. Not having any fevers. INR still subtherapeutic. No bleeding difficulties. - Patient Data Vitals - Most Recent: Last Vital Signs Temp 35.1 C L 10/17/16 07:27 Pulse 80 10/17/16 07:27 Resp 24 H 10/17/16 07:27 BP 130/84 10/17/16 07:27 Pulse Ox 92 L 10/17/16 07:34 Weight - Most Recent: 115.666 kg I&O - Last 24 Hours: Intake & Output 10/16/16 10/17/16 10/17/16 22:59 06:59 14:59 Intake Total 1426 Balance 1426 Lab Results Last 24 Hours: Laboratory Results - last 24 hr 10/17/16 Range/Units 05:30 PT 12.6 H (9.5-12.0) sec INR 1.17 (0.80-1.20) Med Orders - Current: Current Medications Bupropion HCl (Wellbutrin Xl) 150 mg PO BEDTIME [facility] Last Admin: 10/16/16 20:03 Dose: 150 mg Divalproex Sodium (Depakote Er) 1,500 mg PO BEDTIME [facility] Last Admin: 10/16/16 20:02 Dose: 1,500 mg Enoxaparin Sodium (Lovenox) 120 mg SUBCUT Q12H [facility] Last Admin: 10/17/16 09:28 Dose: 120 mg Gabapentin (Neurontin) 600 mg PO TID [facility] Last Admin: 10/17/16 09:28 Dose: 600 mg Lorazepam (Ativan) 0.5 mg PO Q4H PRN PRN Reason: Anxiety Last Admin: 10/16/16 20:03 Dose: 0.5 mg Mirtazapine (Remeron) 15 mg PO BEDTIME [facility] Last Admin: 10/16/16 20:02 Dose: 15 mg Naproxen (Naprosyn) 500 mg PO BID PRN PRN Reason: PAIN Last Admin: 10/16/16 20:03 Dose: 500 mg Nicotine (Habitrol) 21 mg TRDERM DAILY [facility] Last Admin: 10/17/16 09:28 Dose: 21 mg Nicotine Polacrilex (Nicorelief) 2 mg CHEW Q1H PRN PRN Reason: smoking substitute Last Admin: 10/16/16 08:07 Dose: 2 mg Non-Formulary Medication (Buprenorphine Hcl/Naloxone Hcl [Suboxone 12 Mg-3 Mg Sl Film]) 1 dose PO BID [facility] Pneumococcal Polyvalent Vaccine (Pneumovax 23) 0.5 ml SUBCUT .ONCE ONE Stop: 10/17/16 14:01 Quetiapine Fumarate 300 mg/ (Quetiapine Fumarate 200 mg) 500 mg PO BEDTIME [facility] Last Admin: 10/16/16 20:03 Dose: 500 mg Sodium Chloride (Saline Flush) 10 ml FLUSH ASDIRECTED PRN PRN Reason: Keep Vein Open Last Admin: 10/14/16 21:06 Dose: 10 ml Discontinued Medications Heparin Sodium (Porcine) (Heparin Sodium) 5,000 units IVPUSH ONETIME ONE Stop: 10/14/16 20:47 Last Admin: 10/14/16 21:03 Dose: 5,000 units Heparin Sodium (Porcine) (Heparin Sodium) 2,500 units IVPUSH ONETIME ONE Stop: 10/15/16 03:24 Last Admin: 10/15/16 03:38 Dose: 2,500 units Sodium Chloride (Normal Saline) 1,000 mls @ 999 mls/hr IV .BOLUS ONE Stop: 10/14/16 18:45 Last Admin: 10/14/16 17:55 Dose: 999 mls/hr Sodium Chloride (Normal Saline) 100 mls @ 3 mls/sec IV ONETIME ONE Stop: 10/14/16 19:33 Last Admin: 10/14/16 19:51 Dose: 3 mls/sec Sodium Chloride (Normal Saline) 1,000 mls @ 999 mls/hr IV .BOLUS ONE Stop: 10/14/16 20:53 Last Admin: 10/14/16 20:00 Dose: 999 mls/hr Heparin Sodium/Dextrose (Heparin 25,000 Units In D5w 500 Ml) 25,000 units in 500 mls @ 26 mls/hr IV TITRATE ALDO; 1,300 UNITS/HR PRN Reason: Protocol Last Titration: 10/15/16 03:27 Dose: 1,760 units/hr, 35.2 mls/hr Sodium Chloride (Normal Saline) 1,000 mls @ 125 mls/hr IV ASDIRECTED ALDO Last Admin: 10/15/16 04:42 Dose: 125 mls/hr Sodium Chloride (Normal Saline) 1,000 mls @ 125 mls/hr IV ASDIRECTED ALDO Iopamidol (Isovue-370 (76%)) 100 ml IV . DIRECTED ALDO Last Admin: 10/14/16 19:51 Dose: 100 ml Lorazepam (Ativan) 1 mg IVPUSH ONETIME ONE Stop: 10/14/16 18:07 Last Admin: 10/14/16 18:41 Dose: 1 mg Lorazepam (Ativan) 1 mg IVPUSH ONETIME ONE Stop: 10/14/16 21:13 Last Admin: 10/14/16 21:24 Dose: 1 mg Lorazepam (Ativan) 1 mg IVPUSH Q4H PRN PRN Reason: Anxiety Last Admin: 10/14/16 23:09 Dose: 1 mg Lorazepam (Ativan) 1 mg IVPUSH Q2H PRN PRN Reason: Anxiety Lorazepam (Ativan) 0.5 mg IVPUSH Q4H PRN PRN Reason: Anxiety Last Admin: 10/15/16 23:03 Dose: 0.5 mg Quetiapine Fumarate (Seroquel) 200 mg PO BEDTIME ALDO Quetiapine Fumarate (Seroquel) 300 mg PO BEDTIME ALDO Quetiapine Fumarate (Seroquel) 200 mg PO BEDTIME [facility]DO Last Admin: 10/14/16 23:50 Dose: 200 mg Quetiapine Fumarate (Seroquel) 300 mg PO BEDTIME ALDO Quetiapine Fumarate (Seroquel) 300 mg PO BEDTIME ALDO Last Admin: 10/14/16 23:51 Dose: 300 mg Sodium Chloride (Normal Saline) 10 ml FLUSH ONETIME ONE Stop: 10/14/16 19:33 Last Admin: 10/14/16 23:10 Dose: Not Given Warfarin Sodium (Coumadin) 5 mg PO ONETIME ONE Stop: 10/14/16 21:41 Last Admin: 10/14/16 22:55 Dose: 5 mg Warfarin Sodium (Coumadin) 5 mg PO ONETIME ONE Stop: 10/15/16 09:01 Last Admin: 10/15/16 08:42 Dose: 5 mg Warfarin Sodium (Coumadin) 7.5 mg PO ONETIME ONE Stop: 10/16/16 09:01 Last Admin: 10/16/16 10:19 Dose: 7.5 mg - Exam Quality Assessment: Supplemental Oxygen General: Alert, Oriented, Cooperative, No Acute Distress HEENT: Other (stye right eye ) Neck: Supple Lungs: Normal Respiratory Effort GI/Abdominal Exam: Soft, No Distention Extremities: No Pedal Edema Skin: Warm, Dry Psy/Mental Status: Alert, Normal Affect - Problem List Review Problem List Initiated/Reviewed/Updated: Yes - My Orders Last 24 Hours: My Active Orders 10/17/16 13:00 Warfarin [Coumadin] 7.5 mg PO DAILY@1300 10/18/16 05:00 INR,PT,PROTHROMBIN TIME [COAG] Timed - Plan Plan:: ASSESSMENT AND PLAN BILATERAL PULMONARY EMBOLI - no history of blood clots. Possible traumatic event occurring one week ago may have contributed to development of deep vein thrombosis. possible family history of blood clots. Continues to require supplemental oxygen. INR remains subtherapeutic. -Supplemental oxygen as needed -Continuous pulse oximetry -Saline lock IV -enoxaparin 120 mg subcutaneous every 12 hours -Warfarin 7.5 mg by mouth daily -INR daily -Evaluation for hypercoagulable state after he is off of warfarin Stye, right eye - 4 times a day warm packing Bipolar disorder - stable at this time. -Continue home medications Tobacco dependence - Some interest in quitting at this time. Currently using nicotine replacement therapy. Opiate dependence - on Suboxone MAINTENANCE ISSUES -DVT prophylaxis; current therapy with Lovenox should provide adequate DVT prophylaxis -GI prophylaxis; not indicated -Cabral catheter; not indicated -Nutrition; regular diet -Nicotine dependence; 21 mg nicotine patch, 2 mg nicotine gum DISPOSITION - anticipate discharge to home after the hospital stay. Roel Prieto M.D.
[2016-10-17] MEDS: SUBOXONE PO SCH ×2 (12:11→21:01)
[2016-10-17] MEDS ORDERED: Pneumococcal Polyvalent-23 Vaccine 0.5 ML SDV SUBCUT ONE (14:00)
[2016-10-17] MEDS: Warfarin 2.5 MG Tab PO SCH (15:17)
[2016-10-17] MEDS: Divalproex Sodium 250 MG Tab.ER PO SCH (20:54)
[2016-10-17] MEDS: Mirtazapine 15 MG Tab PO SCH (20:57)
[2016-10-17] MEDS: QUETIAPINE PO SCH ×2 (20:58)
[2016-10-17] MEDS: buPROPion 150 MG Tab.ER PO SCH (20:58)
[2016-10-17] MEDS: Nicotine Polacrilex 2 MG Gum CHEW PRN (21:06)
[2016-10-17] MEDS ORDERED: Ketorolac 0.5% Ophth Soln 3 ML Bottle EYERT PRN (23:08)
--- NOTE | 2016-10-18 00:59 | PCM.SN ---
- Free Text/Narrative Note: date 10/17/2016 time 22:45 pm; call from [facility]; Mr. Lucio complaints of right eye pain, requesting eye drops a; stye right eye p; advise to continue with warm packs. can trial dose of Ketoralac eye drops every 6 hours prn pain.
[2016-10-18] MEDS: Tetracaine HCl/PF 0.5% 4 ML Bottle EYERT PRN ×3 (03:01→17:39)
[2016-10-18] MEDS: Nicotine 21 MG/24 Hr Patch TRDERM SCH (09:36)
[2016-10-18] MEDS: Gabapentin 300 MG Cap PO SCH ×4 (09:37→20:28)
[2016-10-18] MEDS: Enoxaparin 120 MG/0.8 ML Syringe SUBCUT SCH ×2 (09:38→20:26)
--- NOTE | 2016-10-18 10:41 | PCM.PN ---
- General Info Date of Service: 10/18/16 Functional Status: Reports: Pain Controlled, Tolerating Diet, Ambulating - Review of Systems Pulmonary: Reports: Shortness of Breath Systems Review Comment:: No acute events overnight. Intermittently require supplemental oxygen. No complaints of chest pain. Still short of breath with activity. Swelling and redness of his right eye not dramatically better today. INR slowly increasing. - Patient Data Vitals - Most Recent: Last Vital Signs Temp 36.0 C 10/18/16 09:00 Pulse 84 10/18/16 09:00 Resp 16 10/18/16 09:00 BP 149/83 H 10/18/16 09:00 Pulse Ox 96 10/18/16 09:00 Weight - Most Recent: 115.666 kg Lab Results Last 24 Hours: Laboratory Results - last 24 hr 10/18/16 Range/Units 05:00 PT 14.7 H (9.5-12.0) sec INR 1.36 H (0.80-1.20) Oscar Results Last 24 Hours: Microbiology 10/17/16 18:54 Gram Stain - Final Sputum - Expectorated Med Orders - Current: Current Medications Bupropion HCl (Wellbutrin Xl) 150 mg PO BEDTIME [facility] Last Admin: 10/17/16 20:58 Dose: 150 mg Divalproex Sodium (Depakote Er) 1,500 mg PO BEDTIME [facility] Last Admin: 10/17/16 20:54 Dose: 1,500 mg Enoxaparin Sodium (Lovenox) 120 mg SUBCUT Q12H [facility] Last Admin: 10/18/16 09:38 Dose: 120 mg Gabapentin (Neurontin) 600 mg PO TID [facility] Last Admin: 10/18/16 09:37 Dose: 600 mg Ketorolac Tromethamine (Acular 0.5% Ophth Soln) 0 ml EYERT Q6H PRN PRN Reason: Pain Lorazepam (Ativan) 0.5 mg PO Q4H PRN PRN Reason: Anxiety Last Admin: 10/16/16 20:03 Dose: 0.5 mg Mirtazapine (Remeron) 15 mg PO BEDTIME [facility] Last Admin: 10/17/16 20:57 Dose: 15 mg Naproxen (Naprosyn) 500 mg PO BID PRN PRN Reason: PAIN Last Admin: 10/16/16 20:03 Dose: 500 mg Nicotine (Habitrol) 21 mg TRDERM DAILY [facility] Last Admin: 10/18/16 09:36 Dose: 21 mg Nicotine Polacrilex (Nicorelief) 2 mg CHEW Q1H PRN PRN Reason: smoking substitute Last Admin: 10/17/16 21:06 Dose: 2 mg Suboxone 12 Mg-3 Mg ((Ptom)) 0 dose PO BID [facility] Last Admin: 10/17/16 21:01 Dose: 12 dose Quetiapine Fumarate 300 mg/ (Quetiapine Fumarate 200 mg) 500 mg PO BEDTIME [facility] Last Admin: 10/17/16 20:58 Dose: 500 mg Sodium Chloride (Saline Flush) 10 ml FLUSH ASDIRECTED PRN PRN Reason: Keep Vein Open Last Admin: 10/14/16 21:06 Dose: 10 ml Tetracaine HCl (Tetracaine 0.5% Steri-Unit Jennifer) 0 ml EYERT QID PRN PRN Reason: eye pain Stop: 10/20/16 02:55 Last Admin: 10/18/16 10:15 Dose: 2 drop Warfarin Sodium (Coumadin) 7.5 mg PO DAILY@1300 [facility] Last Admin: 10/17/16 15:17 Dose: 7.5 mg Discontinued Medications Heparin Sodium (Porcine) (Heparin Sodium) 5,000 units IVPUSH ONETIME ONE Stop: 10/14/16 20:47 Last Admin: 10/14/16 21:03 Dose: 5,000 units Heparin Sodium (Porcine) (Heparin Sodium) 2,500 units IVPUSH ONETIME ONE Stop: 10/15/16 03:24 Last Admin: 10/15/16 03:38 Dose: 2,500 units Sodium Chloride (Normal Saline) 1,000 mls @ 999 mls/hr IV .BOLUS ONE Stop: 10/14/16 18:45 Last Admin: 10/14/16 17:55 Dose: 999 mls/hr Sodium Chloride (Normal Saline) 100 mls @ 3 mls/sec IV ONETIME ONE Stop: 10/14/16 19:33 Last Admin: 10/14/16 19:51 Dose: 3 mls/sec Sodium Chloride (Normal Saline) 1,000 mls @ 999 mls/hr IV .BOLUS ONE Stop: 10/14/16 20:53 Last Admin: 10/14/16 20:00 Dose: 999 mls/hr Heparin Sodium/Dextrose (Heparin 25,000 Units In D5w 500 Ml) 25,000 units in 500 mls @ 26 mls/hr IV TITRATE ALDO; 1,300 UNITS/HR PRN Reason: Protocol Last Titration: 10/15/16 03:27 Dose: 1,760 units/hr, 35.2 mls/hr Sodium Chloride (Normal Saline) 1,000 mls @ 125 mls/hr IV ASDIRECTED ALDO Last Admin: 10/15/16 04:42 Dose: 125 mls/hr Sodium Chloride (Normal Saline) 1,000 mls @ 125 mls/hr IV ASDIRECTED ALDO Iopamidol (Isovue-370 (76%)) 100 ml IV . DIRECTED ALDO Last Admin: 10/14/16 19:51 Dose: 100 ml Lorazepam (Ativan) 1 mg IVPUSH ONETIME ONE Stop: 10/14/16 18:07 Last Admin: 10/14/16 18:41 Dose: 1 mg Lorazepam (Ativan) 1 mg IVPUSH ONETIME ONE Stop: 10/14/16 21:13 Last Admin: 10/14/16 21:24 Dose: 1 mg Lorazepam (Ativan) 1 mg IVPUSH Q4H PRN PRN Reason: Anxiety Last Admin: 10/14/16 23:09 Dose: 1 mg Lorazepam (Ativan) 1 mg IVPUSH Q2H PRN PRN Reason: Anxiety Lorazepam (Ativan) 0.5 mg IVPUSH Q4H PRN PRN Reason: Anxiety Last Admin: 10/15/16 23:03 Dose: 0.5 mg Pneumococcal Polyvalent Vaccine (Pneumovax 23) 0.5 ml SUBCUT .ONCE ONE Stop: 10/17/16 14:01 Last Admin: 10/17/16 20:51 Dose: 0.5 ml Quetiapine Fumarate (Seroquel) 200 mg PO BEDTIME ALDO Quetiapine Fumarate (Seroquel) 300 mg PO BEDTIME ALDO Quetiapine Fumarate (Seroquel) 200 mg PO BEDTIME ALDO Last Admin: 10/14/16 23:50 Dose: 200 mg Quetiapine Fumarate (Seroquel) 300 mg PO BEDTIME ALDO Quetiapine Fumarate (Seroquel) 300 mg PO BEDTIME ALDO Last Admin: 10/14/16 23:51 Dose: 300 mg Sodium Chloride (Normal Saline) 10 ml FLUSH ONETIME ONE Stop: 10/14/16 19:33 Last Admin: 10/14/16 23:10 Dose: Not Given Warfarin Sodium (Coumadin) 5 mg PO ONETIME ONE Stop: 10/14/16 21:41 Last Admin: 10/14/16 22:55 Dose: 5 mg Warfarin Sodium (Coumadin) 5 mg PO ONETIME ONE Stop: 10/15/16 09:01 Last Admin: 10/15/16 08:42 Dose: 5 mg Warfarin Sodium (Coumadin) 7.5 mg PO ONETIME ONE Stop: 10/16/16 09:01 Last Admin: 10/16/16 10:19 Dose: 7.5 mg - Exam Quality Assessment: No: Supplemental Oxygen General: Alert, Oriented, Cooperative, No Acute Distress Neck: Supple Lungs: Normal Respiratory Effort GI/Abdominal Exam: Soft, No Distention Extremities: No Pedal Edema Skin: Warm, Dry Psy/Mental Status: Alert, Normal Affect - Problem List Review Problem List Initiated/Reviewed/Updated: Yes - My Orders Last 24 Hours: My Active Orders 10/17/16 13:00 Warfarin [Coumadin] 7.5 mg PO DAILY@1300 10/17/16 18:54 CULTURE RESPIRATORY + SMEAR [RM] Routine 10/19/16 05:00 CBC W/O DIFF,HEMOGRAM [HEME] Timed (1) INR,PT,PROTHROMBIN TIME [COAG] Timed - Plan Plan:: ASSESSMENT AND PLAN BILATERAL PULMONARY EMBOLI - no history of blood clots. Possible family history of blood clots. Continues to require supplemental oxygen intermittently. INR remains subtherapeutic. -Supplemental oxygen as needed -Continuous pulse oximetry -Saline lock IV -enoxaparin 120 mg subcutaneous every 12 hours -Warfarin 7.5 mg by mouth daily -INR daily -Evaluation for hypercoagulable state after he is off of warfarin Stye, right eye - 4 times a day warm packing Bipolar disorder - stable at this time. -Continue home medications Tobacco dependence - Some interest in quitting at this time. Currently using nicotine replacement therapy. Opiate dependence - on Suboxone MAINTENANCE ISSUES -DVT prophylaxis; enoxaparin -GI prophylaxis; not indicated -Cabral catheter; not indicated -Nutrition; regular diet -Nicotine dependence; 21 mg nicotine patch, 2 mg nicotine gum DISPOSITION - anticipate discharge to home after the hospital stay. Roel Prieot M.D.
[2016-10-18] MEDS: Warfarin 2.5 MG Tab PO SCH (13:17)
[2016-10-18] MEDS: SUBOXONE PO SCH ×2 (13:18→17:30)
[2016-10-18] MEDS: Divalproex Sodium 250 MG Tab.ER PO SCH (20:25)
[2016-10-18] MEDS: QUETIAPINE PO SCH ×2 (20:29)
[2016-10-18] MEDS: buPROPion 150 MG Tab.ER PO SCH (20:31)
[2016-10-18] MEDS: Mirtazapine 15 MG Tab PO SCH (20:31)
[2016-10-19] MEDS: Tetracaine HCl/PF 0.5% 4 ML Bottle EYERT PRN (07:24)
[2016-10-19] MEDS ORDERED: Enoxaparin 120 MG/0.8 ML Syringe SUBCUT SCH (09:00)
[2016-10-19 09:14] VITALS: BP 120/73
[2016-10-19] MEDS: Nicotine 21 MG/24 Hr Patch TRDERM SCH (09:17)
[2016-10-19] MEDS: Gabapentin 300 MG Cap PO SCH (09:18)
--- NOTE | 2016-10-19 10:22 | PCM.DCSUM1 ---
Discharge Summary - Hospital Course Brief History: 31-year-old male with history of tobacco dependence and opiate dependence who presented with shortness of breath and was admitted for management of acute bilateral pulmonary emboli. - Discharge Data Discharge Date: 10/19/16 Discharge Disposition: Home, Self-Care 01 Condition: Fair - Discharge Diagnosis/Problem(s) (1) Pulmonary emboli SNOMED Code(s): 13141885, 52592494 ICD Code: I26.99 - OTHER PULMONARY EMBOLISM WITHOUT ACUTE COR PULMONALE Status: Acute Qualifiers: Pulmonary embolism type: other Chronicity: acute Acute cor pulmonale presence: without acute cor pulmonale Qualified Code(s): I26.99 - Other pulmonary embolism without acute cor pulmonale (2) Tobacco dependence SNOMED Code(s): 61597100 ICD Code: F17.200 - NICOTINE DEPENDENCE, UNSPECIFIED, UNCOMPLICATED Status : Chronic (3) Stye SNOMED Code(s): 5219295 ICD Code: H00.019 - HORDEOLUM EXTERNUM UNSPECIFIED EYE, UNSPECIFIED EYELID Status: Acute Qualifiers: Laterality: right Eyelid: upper Qualified Code(s): H00.011 - Hordeolum externum right upper eyelid - Patient Summary/Data Hospital Course: Jose presented to the emergency room with several days of shortness of breath. Workup in the emergency room revealed an elevated d-dimer and this prompted a CT scan which did reveal multiple bilateral pulmonary emboli. He was admitted to the hospital and started on therapy with enoxaparin and warfarin. We continued these medications for several days until his INR was close to therapeutic. There was some concern about his reliability and elected to do most of the management in the hospital to ensure that he reached a therapeutic level with his warfarin prior to discharge. His INR did slowly rise with warfarin therapy and is nearly therapeutic on the day of discharge. He did receive a 24-hour dose of Lovenox. The morning of discharge. I suspect that with today's dose his INR will be 2 or greater tomorrow and then we will change to maintenance dose of 5 mg daily. We did provide some teaching about warfarin as well as dietary instructions with warfarin. He may very well have an inherited clotting disorder. We elected not to send the hypercoagulable panel during the hospital stay and will defer this to outpatient management and possibly even after he has completed his warfarin therapy. He did not have obvious preceding event to lead to DVT and/or PE. His hospital stay was complicated by several episodes of somnolence. There was suspicion for extra medication possibly brought in from the outside though no one ever witnessed this definitively. The last few days have been a less eventful. He'll be discharged home with Coumadin clinic follow-up next week and primary care follow -up next week. Also encountered during the hospital stay was a hordeolum on his right eye. We treated this with warm compresses with some improvement. Once the end of the hospital stay he developed more of a purulent drainage and I elected to provide a prescription for Polytrim eyedrops at the time of discharge. Hopefully these along with the warm compresses will treat the infection adequately. He is interested in quitting smoking. We discussed potential treatment options. He is are on Wellbutrin. He was interested in Chantix but I'm concerned that with his mental health issues that this may not be a safe medication for him. We discussed nicotine patches but he was not very interested in these. I encouraged him to set a quit date and try to decrease his cigarette intake between now and then. He will be using the nicotine gum to try and curb his cravings. - Patient Instructions Diet: Regular Diet as Tolerated Activity: As Tolerated Driving: May Drive Today Showering/Bathing: May Shower Notify Provider of: Fever, Increased Pain Other/Special Instructions: 1. You were in the hospital for management of acute bilateral pulmonary emboli (blood clots in your lungs). I recommend 6 months of therapy with warfarin (AKA coumadin). You should start by taking 5 mg of warfarin once daily at a consistent time. Your first dose will be due tomorrow. He will need follow-up in the Coumadin clinic to help monitor your levels. 2. Referral to the Coumadin clinic at [facility] in [place]. INR goal is 2 -3 and I recommend at least 6 months of therapy. 3. You have a stye on your right eye. I recommend that you place a hot washcloth over your eye for 15-20 minutes 4 times a day. I have also prescribed Polytrim eyedrops. You should place 4 drops in your right eye 4 times daily for 5 days. 4. Please seek medical attention if you develop acute shortness of breath, chest pain or have bleeding that you cannot control with pressure over the area. - Discharge Plan Prescriptions/Med Rec: Nicotine Polacrilex [Nicorelief] 2 mg CHEW Q1H PRN #2 box PRN Reason: nicotine dependence Polymyxin B Sulf/Trimethoprim [Polytrim Eye Drops] 4 drop EYERT QID #1 bottle Warfarin [Coumadin] 5 mg PO DAILY #30 tablet Home Medications: Home Meds Gabapentin [Neurontin] 600 mg PO TID 06/05/16 [History] Naproxen 500 mg PO BID PRN 06/05/16 [History] QUEtiapine [SEROquel] 200 mg PO BEDTIME 06/05/16 [History] QUEtiapine [SEROquel] 300 mg PO BEDTIME 06/05/16 [History] buPROPion [Wellbutrin XL] 150 mg PO DAILY 06/05/16 [History] Buprenorphine HCl/Naloxone HCl [Suboxone 12 mg-3 mg Sl Film] 1 dose PO BID 10/14 [History] Divalproex Sodium [Divalproex Sodium ER] 1,500 mg PO DAILY 10/15/16 [History] Mirtazapine [Remeron] 15 mg PO BEDTIME 10/15/16 [History] Nicotine Polacrilex [Nicorelief] 2 mg CHEW Q1H PRN #2 box 10/19/16 [Rx] Polymyxin B Sulf/Trimethoprim [Polytrim Eye Drops] 4 drop EYERT QID #1 bottle [Rx] Warfarin [Coumadin] 5 mg PO DAILY #30 tablet 10/19/16 [Rx] Patient Handouts: Smoking Cessation, Tips for Success, [id number], Vitamin K Foods and Warfarin, Warfarin Coagulopathy, Pulmonary Embolism Referrals: Gene Art PA-C [Physician Mathematical Statistician] - (f/u in 1 week - f/u hospital stay for pulmonary emboli) - Discharge Summary/Plan Comment DC Time >30 min.: No (25) - Patient Data Vitals - Most Recent: Last Vital Signs Temp 36.0 C 10/19/16 09:10 Pulse 100 10/19/16 09:10 Resp 18 10/19/16 09:10 BP 120/73 10/19/16 09:10 Pulse Ox 93 L 10/19/16 09:10 Weight - Most Recent: 115.666 kg I&O - Last 24 hours: Intake & Output 10/18/16 10/19/16 10/19/16 22:59 06:59 14:59 Intake Total 600 240 Balance 600 240 Lab Results - Last 24 hrs: Laboratory Results - last 24 hr 10/19/16 10/19/16 Range/Units 05:50 05:50 WBC 7.4 (4.5-11.0) K/uL RBC 4.51 (4.30-5.90) M/uL Hgb 14.0 (12.0-15.0) g/dL Hct 41.2 (40.0-54.0) % MCV 91 (80-98) fL MCH 31 (27-31) pg MCHC 34 (32-36) % Plt Count 462 H (150-400) K/uL PT 20.4 H (9.5-12.0) sec INR 1.86 H (0.80-1.20) OSVALDO Results - Last 24 hrs: Microbiology 10/17/16 18:54 Gram Stain - Final Sputum - Expectorated Respiratory Culture - Preliminary NORMAL RESPIRATORY LULU 1 DAY Med Orders - Current: Current Medications Bupropion HCl (Wellbutrin Xl) 150 mg PO BEDTIME [facility] Last Admin: 10/18/16 20:31 Dose: 150 mg Divalproex Sodium (Depakote Er) 1,500 mg PO BEDTIME [facility]DO Last Admin: 10/18/16 20:25 Dose: 1,500 mg Enoxaparin Sodium 120 mg/ (Enoxaparin Sodium 60 mg) 180 mg SUBCUT DAILY [facility] Last Admin: 10/19/16 09:18 Dose: 180 mg Gabapentin (Neurontin) 600 mg PO TID ALDO Last Admin: 10/19/16 09:18 Dose: 600 mg Ketorolac Tromethamine (Acular 0.5% Ophth Soln) 0 ml EYERT Q6H PRN PRN Reason: Pain Lorazepam (Ativan) 0.5 mg PO Q4H PRN PRN Reason: Anxiety Last Admin: 10/16/16 20:03 Dose: 0.5 mg Mirtazapine (Remeron) 15 mg PO BEDTIME [facility]DO Last Admin: 10/18/16 20:31 Dose: 15 mg Naproxen (Naprosyn) 500 mg PO BID PRN PRN Reason: PAIN Last Admin: 10/16/16 20:03 Dose: 500 mg Nicotine (Habitrol) 21 mg TRDERM DAILY [facility] Last Admin: 10/19/16 09:17 Dose: 21 mg Nicotine Polacrilex (Nicorelief) 2 mg CHEW Q1H PRN PRN Reason: smoking substitute Last Admin: 10/17/16 21:06 Dose: 2 mg Suboxone 12 Mg-3 Mg ((Ptom)) 0 dose PO BID [facility] Last Admin: 10/18/16 17:30 Dose: 1 dose Quetiapine Fumarate 300 mg/ (Quetiapine Fumarate 200 mg) 500 mg PO BEDTIME [facility] Last Admin: 10/18/16 20:29 Dose: 500 mg Sodium Chloride (Saline Flush) 10 ml FLUSH ASDIRECTED PRN PRN Reason: Keep Vein Open Last Admin: 10/14/16 21:06 Dose: 10 ml Tetracaine HCl (Tetracaine 0.5% Steri-Unit Jennifer) 0 ml EYERT QID PRN PRN Reason: eye pain Stop: 10/20/16 02:55 Last Admin: 10/19/16 07:24 Dose: 2 drop Warfarin Sodium (Coumadin) 7.5 mg PO DAILY@1300 [facility] Last Admin: 10/18/16 13:17 Dose: 7.5 mg Discontinued Medications Enoxaparin Sodium (Lovenox) 120 mg SUBCUT Q12H [facility] Last Admin: 10/18/16 20:26 Dose: 120 mg Heparin Sodium (Porcine) (Heparin Sodium) 5,000 units IVPUSH ONETIME ONE Stop: 10/14/16 20:47 Last Admin: 10/14/16 21:03 Dose: 5,000 units Heparin Sodium (Porcine) (Heparin Sodium) 2,500 units IVPUSH ONETIME ONE Stop: 10/15/16 03:24 Last Admin: 10/15/16 03:38 Dose: 2,500 units Sodium Chloride (Normal Saline) 1,000 mls @ 999 mls/hr IV .BOLUS ONE Stop: 10/14/16 18:45 Last Admin: 10/14/16 17:55 Dose: 999 mls/hr Sodium Chloride (Normal Saline) 100 mls @ 3 mls/sec IV ONETIME ONE Stop: 10/14/16 19:33 Last Admin: 10/14/16 19:51 Dose: 3 mls/sec Sodium Chloride (Normal Saline) 1,000 mls @ 999 mls/hr IV .BOLUS ONE Stop: 10/14/16 20:53 Last Admin: 10/14/16 20:00 Dose: 999 mls/hr Heparin Sodium/Dextrose (Heparin 25,000 Units In D5w 500 Ml) 25,000 units in 500 mls @ 26 mls/hr IV TITRATE ALDO; 1,300 UNITS/HR PRN Reason: Protocol Last Titration: 10/15/16 03:27 Dose: 1,760 units/hr, 35.2 mls/hr Sodium Chloride (Normal Saline) 1,000 mls @ 125 mls/hr IV ASDIRECTED ALDO Last Admin: 10/15/16 04:42 Dose: 125 mls/hr Sodium Chloride (Normal Saline) 1,000 mls @ 125 mls/hr IV ASDIRECTED ALDO Iopamidol (Isovue-370 (76%)) 100 ml IV . DIRECTED ALDO Last Admin: 10/14/16 19:51 Dose: 100 ml Lorazepam (Ativan) 1 mg IVPUSH ONETIME ONE Stop: 10/14/16 18:07 Last Admin: 10/14/16 18:41 Dose: 1 mg Lorazepam (Ativan) 1 mg IVPUSH ONETIME ONE Stop: 10/14/16 21:13 Last Admin: 10/14/16 21:24 Dose: 1 mg Lorazepam (Ativan) 1 mg IVPUSH Q4H PRN PRN Reason: Anxiety Last Admin: 10/14/16 23:09 Dose: 1 mg Lorazepam (Ativan) 1 mg IVPUSH Q2H PRN PRN Reason: Anxiety Lorazepam (Ativan) 0.5 mg IVPUSH Q4H PRN PRN Reason: Anxiety Last Admin: 10/15/16 23:03 Dose: 0.5 mg Pneumococcal Polyvalent Vaccine (Pneumovax 23) 0.5 ml SUBCUT .ONCE ONE Stop: 10/17/16 14:01 Last Admin: 10/17/16 20:51 Dose: 0.5 ml Quetiapine Fumarate (Seroquel) 200 mg PO BEDTIME ALDO Quetiapine Fumarate (Seroquel) 300 mg PO BEDTIME ALDO Quetiapine Fumarate (Seroquel) 200 mg PO BEDTIME ALDO Last Admin: 10/14/16 23:50 Dose: 200 mg Quetiapine Fumarate (Seroquel) 300 mg PO BEDTIME ALDO Quetiapine Fumarate (Seroquel) 300 mg PO BEDTIME ALDO Last Admin: 10/14/16 23:51 Dose: 300 mg Sodium Chloride (Normal Saline) 10 ml FLUSH ONETIME ONE Stop: 10/14/16 19:33 Last Admin: 10/14/16 23:10 Dose: Not Given Warfarin Sodium (Coumadin) 5 mg PO ONETIME ONE Stop: 10/14/16 21:41 Last Admin: 10/14/16 22:55 Dose: 5 mg Warfarin Sodium (Coumadin) 5 mg PO ONETIME ONE Stop: 10/15/16 09:01 Last Admin: 10/15/16 08:42 Dose: 5 mg Warfarin Sodium (Coumadin) 7.5 mg PO ONETIME ONE Stop: 10/16/16 09:01 Last Admin: 10/16/16 10:19 Dose: 7.5 mg *Q Meaningful Use (DIS) - VTE *Q VTE Criteria *Q: - Stroke *Q Stroke Criteria *Q: - AMI *Q AMI Criteria *Q:
[2016-10-19] MEDS: SUBOXONE PO SCH (10:40)
[2016-10-19] MEDS: Warfarin 2.5 MG Tab PO SCH (10:41)
== END 2016-10-19 11:00 | disposition home or self-care (01) | DRG 176 ==
LOC: JP.ED 17:24 → JP.ICU 21:31 → JP.MS 10-15 12:15
PROVIDERS: ADMIT Family Medicine; ATTEND Internal Medicine
DX: I26.99 Other pulmonary embolism without acute cor pulmonale (principal); F11.20 Opioid dependence, uncomplicated; R09.02 Hypoxemia; F17.210 Nicotine dependence, cigarettes, uncomplicated; H00.013 Hordeolum externum right eye, unspecified eyelid; G40.909 Epilepsy, unspecified, not intractable, without status epilepticus; Z87.820 Personal history of traumatic brain injury; Z91.5 Personal history of self-harm; F31.9 Bipolar disorder, unspecified; F43.10 Post-traumatic stress disorder, unspecified; G89.29 Other chronic pain; M54.9 Dorsalgia, unspecified; Z23 Encounter for immunization; Z79.01 Long term (current) use of anticoagulants; Z88.1 Allergy status to other antibiotic agents; R40.0 Somnolence
CPT/HCPCS: 36415; 71020; 71020-26; 71275; 80053; 80305; 81001; 83605; 85025; 85027; 85379; 85610; 85730; 86140; 87070; 87205; 90732; 94762; 96374; 96375; 99285-25; A9270-GY; J1644; J1650; J2060; J7030; J7040; J7050; Q9967

== ENCOUNTER 2017-05-15 22:21 | Emergency (ER) | payer MEDICAID ==
[2017-05-15 22:33] VITALS: BP 136/80
--- NOTE | 2017-05-15 22:49 | EDM.PDOCBH ---
ED HPI GENERAL MEDICAL PROBLEM - General Chief Complaint: Behavioral/Psych Stated Complaint: EVAL Time Seen by Provider: 05/15/17 22:42 Source of Information: Reports: Patient, Family, RN Notes Reviewed History Limitations: Reports: No Limitations - History of Present Illness INITIAL COMMENTS - FREE TEXT/NARRATIVE: 32-year-old gentleman presents to the emergency department today with complaints of suicidal ideation, he admits to using methamphetamine he admits to cutting himself he does have a wound on his left dorsal aspect of the wrist that is over 48 hours old. His plan was to either hang himself for keep cutting until the blood out - Related Data Allergies Allergy/AdvReac Type Severity Reaction Status Date / Time amoxicillin Allergy Hives Verified 05/15/17 23:04 Home Meds: Home Meds *Depakote PO BEDTIME 05/15/17 [History] *Gabapentin PO BEDTIME 05/15/17 [History] *Omeprazole PO BEDTIME 05/15/17 [History] *Prazosin PO BEDTIME 05/15/17 [History] *Propranolol PO BEDTIME 05/15/17 [History] *Suboxone PO BID 05/15/17 [History] *Warfarin PO BEDTIME 05/15/17 [History] *Wellbutrin PO BEDTIME 05/15/17 [History] Past Medical History Cardiovascular History: Reports: Hypertension Gastrointestinal History: Reports: Hepatitis Genitourinary History: Reports: Other (See Below) Other Genitourinary History: States he had acute kidney faliure Musculoskeletal History: Reports: Fracture Other Musculoskeletal History: Jaw Neurological History: Reports: Seizure Other Neuro History: TBI Psychiatric History: Reports: ADHD, Addiction, Bipolar, Psych Hospitalization(s) , PTSD, Suicide Attempt Endocrine/Metabolic History: Reports: Other (See Below) Other Endocrine/Metabolic History: pre diabetes - Infectious Disease History Infectious Disease History: Reports: Hepatitis C - Past Surgical History HEENT Surgical History: Reports: Adenoidectomy, Myringotomy w Tube(s) Musculoskeletal Surgical History: Reports: Other (See Below) Other Musculoskeletal Surgeries/Procedures:: surgery for broken jaw Social & Family History - Family History Family Medical History: Noncontributory - Tobacco Use Smoking Status *Q: Current Every Day Smoker Years of Tobacco use: 20 Packs/Tins Daily: 1 - Caffeine Use Caffeine Use: Reports: Coffee, Energy Drinks, Soda - Recreational Drug Use Recreational Drug Use: Yes Drug Use in Last 12 Months: Yes Recreational Drug Type: Reports: Dilaudid, Heroin, Methamphetamine, Vicodin ED ROS GENERAL - Review of Systems Review Of Systems: See Below Constitutional: Reports: No Symptoms Respiratory: Reports: No Symptoms Cardiovascular: Reports: No Symptoms GI/Abdominal: Reports: No Symptoms : Reports: No Symptoms Skin: Reports: Wound Psychiatric: Reports: Agitation, Suicidal Ideation ED EXAM, BEHAVIORAL HEALTH - Physical Exam Exam: See Below Exam Limited By: No Limitations General Appearance: Alert, No Apparent Distress Eye Exam: Bilateral Eye: Normal Inspection Respiratory/Chest: No Respiratory Distress, Lungs Clear, Normal Breath Sounds, No Accessory Muscle Use, Chest Non-Tender Cardiovascular: Normal Peripheral Pulses, Regular Rate, Rhythm, No Murmur GI/Abdominal: Soft, Non-Tender Psychiatric: Alert, Agitated, Poor Eye Contact, Suicidal Plan, Suicidal Thoughts. No: Uncooperative, Judaism Delusions, Tangential Thoughts, Auditory Hallucinations, Visual Hallucinations, Grandiose Thoughts, Paranoid Thoughts, Threatening Behavior Skin Exam: Wound/incision (Dorsal aspect of the wrist over 48 hours old starting to heal by second intention with granulation) COURSE, BEHAVIORAL HEALTH COMP - Course Vital Signs: Last Vital Signs Temp 95.2 F L 05/15/17 22:32 Pulse 92 05/15/17 22:32 Resp 16 05/15/17 22:32 BP 136/80 05/15/17 22:32 Pulse Ox 94 L 05/15/17 22:32 Orders, Labs, Meds: Active Orders 24 hr Category Date Time Status Vaccines to be Administered [RC] PER UNIT ROUTINE Care 05/15/17 23:03 Active Laboratory Tests 05/15/17 05/15/17 05/15/17 Range/Units 22:48 22:48 23:04 WBC 7.3 (4.5-11.0) K/uL RBC 4.49 (4.30-5.90) M/uL Hgb 13.8 (12.0-15.0) g/dL Hct 40.7 (40.0-54.0) % MCV 91 (80-98) fL MCH 31 (27-31) pg MCHC 34 (32-36) % Plt Count 408 H (150-400) K/uL Neut % (Auto) 50 (36-66) % Lymph % (Auto) 34 (24-44) % [place] % (Auto) 11 H (2-6) % Eos % (Auto) 4 (2-4) % Baso % (Auto) 0 (0-1) % Sodium (140-148) mmol/L Potassium (3.6-5.2) mmol/L Chloride (100-108) mmol/L Carbon Dioxide (21-32) mmol/L Anion Gap (5.0-14.0) mmol/L BUN (7-18) mg/dL Creatinine (0.8-1.3) mg/dL Est Cr Clr Drug Dosing mL/min Estimated GFR (MDRD) (>60) Glucose (74-106) mg/dL Calcium (8.5-10.1) mg/dL Total Bilirubin (0.2-1.0) mg/dL AST (15-37) U/L ALT (12-78) U/L Alkaline Phosphatase (46-116) U/L Total Protein (6.4-8.2) g/dL Albumin (3.4-5.0) g/dL Globulin (2.3-3.5) g/dL Albumin/Globulin Ratio (1.2-2.2) TSH, Ultra Sensitive (0.358-3.740) uIU/mL Urine Color [place] Urine Appearance Clear Urine pH 5.0 (4.5-8.0) Ur Specific [place] 1.020 (1.008-1.030) Urine Protein 30 H (NEGATIVE) mg/dL Urine Glucose (UA) Normal (NEGATIVE) mg/dL Urine Ketones 15 H (NEGATIVE) mg/dL Urine Occult Blood Negative (NEGATIVE) Urine Nitrite Negative (NEGAITVE) Urine Bilirubin Small (NEGATIVE) Urine Urobilinogen 4 (NORMAL) mg/dL Ur Leukocyte Esterase Small (NEGATIVE) Urine RBC Not seen (0-5) Urine WBC 0-5 (0-5) Ur Epithelial Cells Not seen Amorphous Sediment Few Urine Bacteria Not seen Urine Mucus Not seen Salicylates (2.0-20.0) mg/dL Urine Opiates Screen Negative (NEGATIVE) Ur Oxycodone Screen Negative (NEGATIVE) Urine Methadone Screen Negative (NEGATIVE) Ur Propoxyphene Screen Negative (NEGATIVE) Acetaminophen (10.0-30.0) ug/mL Ur Barbiturates Screen Negative (NEGATIVE) Ur Tricyclics Screen Positive H (NEGATIVE) Ur Phencyclidine Scrn Negative (NEGATIVE) Ur Amphetamine Screen Positive H (NEGATIVE) U Methamphetamines Scrn Positive H (NEGATIVE) Urine MDMA Screen Positive H (NEGATIVE) U Benzodiazepines Scrn Positive H (NEGATIVE) U Cocaine Metab Screen Negative (NEGATIVE) U Marijuana (THC) Screen Positive H (NEGATIVE) Ethyl Alcohol mg/dL 05/15/17 05/15/17 05/15/17 Range/Units 23:04 23:04 23:04 WBC (4.5-11.0) K/uL RBC (4.30-5.90) M/uL Hgb (12.0-15.0) g/dL Hct (40.0-54.0) % MCV (80-98) fL MCH (27-31) pg MCHC (32-36) % Plt Count (150-400) K/uL Neut % (Auto) (36-66) % Lymph % (Auto) (24-44) % [place] % (Auto) (2-6) % Eos % (Auto) (2-4) % Baso % (Auto) (0-1) % Sodium 138 L (140-148) mmol/L Potassium 4.2 (3.6-5.2) mmol/L Chloride 103 (100-108) mmol/L Carbon Dioxide 28 (21-32) mmol/L Anion Gap 11.2 (5.0-14.0) mmol/L BUN 21 H (7-18) mg/dL Creatinine 1.1 (0.8-1.3) mg/dL Est Cr Clr Drug Dosing 106.94 mL/min Estimated GFR (MDRD) > 60 (>60) Glucose 108 H (74-106) mg/dL Calcium 8.4 L (8.5-10.1) mg/dL Total Bilirubin 0.3 (0.2-1.0) mg/dL AST 51 H D (15-37) U/L ALT 36 (12-78) U/L Alkaline Phosphatase 97 (46-116) U/L Total Protein 7.4 (6.4-8.2) g/dL Albumin 4.0 (3.4-5.0) g/dL Globulin 3.4 (2.3-3.5) g/dL Albumin/Globulin Ratio 1.2 (1.2-2.2) TSH, Ultra Sensitive (0.358-3.740) uIU/mL Urine Color Urine Appearance Urine pH (4.5-8.0) Ur Specific [place] (1.008-1.030) Urine Protein (NEGATIVE) mg/dL Urine Glucose (UA) (NEGATIVE) mg/dL Urine Ketones (NEGATIVE) mg/dL Urine Occult Blood (NEGATIVE) Urine Nitrite (NEGAITVE) Urine Bilirubin (NEGATIVE) Urine Urobilinogen (NORMAL) mg/dL Ur Leukocyte Esterase (NEGATIVE) Urine RBC (0-5) Urine WBC (0-5) Ur Epithelial Cells Amorphous Sediment Urine Bacteria Urine Mucus Salicylates 3.8 (2.0-20.0) mg/dL Urine Opiates Screen (NEGATIVE) Ur Oxycodone Screen (NEGATIVE) Urine Methadone Screen (NEGATIVE) Ur Propoxyphene Screen (NEGATIVE) Acetaminophen 0.0 L (10.0-30.0) ug/mL Ur Barbiturates Screen (NEGATIVE) Ur Tricyclics Screen (NEGATIVE) Ur Phencyclidine Scrn (NEGATIVE) Ur Amphetamine Screen (NEGATIVE) U Methamphetamines Scrn (NEGATIVE) Urine MDMA Screen (NEGATIVE) U Benzodiazepines Scrn (NEGATIVE) U Cocaine Metab Screen (NEGATIVE) U Marijuana (THC) Screen (NEGATIVE) Ethyl Alcohol 2 mg/dL 05/15/17 Range/Units 23:04 WBC (4.5-11.0) K/uL RBC (4.30-5.90) M/uL Hgb (12.0-15.0) g/dL Hct (40.0-54.0) % MCV (80-98) fL MCH (27-31) pg MCHC (32-36) % Plt Count (150-400) K/uL Neut % (Auto) (36-66) % Lymph % (Auto) (24-44) % [place] % (Auto) (2-6) % Eos % (Auto) (2-4) % Baso % (Auto) (0-1) % Sodium (140-148) mmol/L Potassium (3.6-5.2) mmol/L Chloride (100-108) mmol/L Carbon Dioxide (21-32) mmol/L Anion Gap (5.0-14.0) mmol/L BUN (7-18) mg/dL Creatinine (0.8-1.3) mg/dL Est Cr Clr Drug Dosing mL/min Estimated GFR (MDRD) (>60) Glucose (74-106) mg/dL Calcium (8.5-10.1) mg/dL Total Bilirubin (0.2-1.0) mg/dL AST (15-37) U/L ALT (12-78) U/L Alkaline Phosphatase (46-116) U/L Total Protein (6.4-8.2) g/dL Albumin (3.4-5.0) g/dL Globulin (2.3-3.5) g/dL Albumin/Globulin Ratio (1.2-2.2) TSH, Ultra Sensitive 1.636 (0.358-3.740) uIU/mL Urine Color Urine Appearance Urine pH (4.5-8.0) Ur Specific [place] (1.008-1.030) Urine Protein (NEGATIVE) mg/dL Urine Glucose (UA) (NEGATIVE) mg/dL Urine Ketones (NEGATIVE) mg/dL Urine Occult Blood (NEGATIVE) Urine Nitrite (NEGAITVE) Urine Bilirubin (NEGATIVE) Urine Urobilinogen (NORMAL) mg/dL Ur Leukocyte Esterase (NEGATIVE) Urine RBC (0-5) Urine WBC (0-5) Ur Epithelial Cells Amorphous Sediment Urine Bacteria Urine Mucus Salicylates (2.0-20.0) mg/dL Urine Opiates Screen (NEGATIVE) Ur Oxycodone Screen (NEGATIVE) Urine Methadone Screen (NEGATIVE) Ur Propoxyphene Screen (NEGATIVE) Acetaminophen (10.0-30.0) ug/mL Ur Barbiturates Screen (NEGATIVE) Ur Tricyclics Screen (NEGATIVE) Ur Phencyclidine Scrn (NEGATIVE) Ur Amphetamine Screen (NEGATIVE) U Methamphetamines Scrn (NEGATIVE) Urine MDMA Screen (NEGATIVE) U Benzodiazepines Scrn (NEGATIVE) U Cocaine Metab Screen (NEGATIVE) U Marijuana (THC) Screen (NEGATIVE) Ethyl Alcohol mg/dL Medications Discontinued Medications Generic Name Dose Route Start Last Admin Trade Name Freq PRN Reason Stop Dose Admin Diphtheria/Tetanus/Acell Pertussis 0.5 ml 05/15/17 23:03 05/15/17 23:31 Adacel IM 05/15/17 23:04 0.5 ml .ONCE ONE Administration Departure - Departure Time of Disposition: 00:27 Disposition: DC/Tfer to Psych Hosp/Unit 65 Condition: Fair Clinical Impression: Drug abuse, Suicidal ideation - Discharge Information Referrals: PCP,None [Primary Care Provider] - Forms: ED Department Discharge - My Orders Last 24 Hours: My Active Orders 05/15/17 23:03 Vaccines to be Administered [RC] PER UNIT ROUTINE - Assessment/Plan Last 24 Hours: My Active Orders 05/15/17 23:03 Vaccines to be Administered [RC] PER UNIT ROUTINE Plan: Assessment Acuity = acute Site and laterality = suicidal ideation complicated patient with known history of illicit drug use Etiology = unclear etiology Manifestations = none Location of injury = Home Lab values = CBC, CMP unremarkable thyroid normal urinalysis normal urine drug screen positive for tricyclics, methamphetamine, MDMA, benzodiazepines and cannabis Plan He will be transported to [facility], with family members via private vehicle This note was dictated using [employer] voice recognition software please call with any questions on syntax or jose.
[2017-05-15] MEDS ORDERED: Diphtheria,Pertussis(Acell),Tetanus Vaccine 0.5 ML SDV IM ONE (23:03)
== END 2017-05-16 00:40 ==
LOC: JP.ED 22:21
DX: R45.851 Suicidal ideations (principal); I10 Essential (primary) hypertension; F17.210 Nicotine dependence, cigarettes, uncomplicated; F19.10 Other psychoactive substance abuse, uncomplicated; Z88.1 Allergy status to other antibiotic agents; Z79.01 Long term (current) use of anticoagulants; Z79.899 Other long term (current) drug therapy
CPT/HCPCS: 36415; 80053; 80305; 81001; 84443; 85025; 90471; 90715; 99285-25; G0480

== ENCOUNTER 2021-10-08 22:32 | Emergency (ER) | payer MEDICAID ==
[2021-10-08 22:58] VITALS: BP 152/91; PULSE 93
[2021-10-08 23:54] LABS: ESTIMATED GFR 99 mL/min (>60)
== END 2021-10-09 00:06 | disposition home or self-care (01) ==
LOC: JP.ED 22:32
DX: F31.75 Bipolar disorder, in partial remission, most recent episode depressed (principal); F43.20 Adjustment disorder, unspecified; I10 Essential (primary) hypertension; Z88.0 Allergy status to penicillin; Z86.19 Personal history of other infectious and parasitic diseases
CPT/HCPCS: 36415; 80053; 80305-QW; 85027; 99285